=== PATIENT | female | born 1945 | race Caucasian/White ===

== ENCOUNTER 2022-10-26 18:18 | Inpatient (IN) | payer MEDICARE, MEDICAID, SELFPAY ==
[2022-10-26] VITALS (12 sets, daily range): BP systolic 126–181; BP diastolic 65–92; PULSE 61–73; RESP 16–25; TEMP 36.3; O2SAT 92–97; BMI 23.4
--- NOTE | 2022-10-26 18:36 | PM.HP ---
Providers/Chief Complaint Admitting Physician: Angel Cruz MD Chief Complaint: chest pain History of Present Illness Yasmin Crockett is a 77 year old female with past medical history of hypertension, CAD post [place] in January 2022 followed by PCI, unstable angina, PCI to RCA in August 2022 at [facility] presented to the outside ER today with ongoing chest pain since today morning. Patient has been transferred to our hospital from outside ER. As per patient she woke up today with ongoing left arm pain and heaviness which progressed to left sided chest pain radiating to jaw along with fluttering in chest and nausea. Once pain subsided after taking nitro she developed on and off chest heaviness. In the outside ER she was found to have baseline troponin x1, given full dose aspirin. On examination patient is comfortable in bed, chest pain has resolved but complaining of on and off chest heaviness. Blood pressure is fluctuating between 1 80-200 systolics. At baseline patient states her blood pressure is between 1 30-1 19 systolics. Patient denies any nausea, vomiting, headache. As per patient she has been having on and off chest heaviness with fluttering sensation in the chest for last 1 week on exertion. Review of Systems General: Reports: 10 or more systems reviewed and unremarkable except in HPI and below Const: Denies: fever(s), chills, body aches, change in appetite, change in weight, malaise, night sweats, diaphoresis, change in sleep pattern, daytime sleepiness or snoring Eyes: Denies: change in vision, blurry vision, photophobia, eye discomfort or eye discharge ENMT: Denies: throat pain, enlarged tonsils, hoarseness, mouth pain, oral sores, dry mouth, tinnitus, nasal congestion or post nasal drip Card: Denies: chest pain, palpitations, irregular heart rhythm, edema, swelling of feet/ankles, lightheadedness, syncope, pre-syncope, dyspnea on exertion, orthopnea, leg pain with exertion or acrocyanosis Resp: Denies: dyspnea, productive cough, non-productive cough, wheezing, stridor, pain on inspiration, change in phlegm color, hemoptysis or chest congestion GI: Denies: abdominal pain, nausea, vomiting, hematemesis, coffee ground emesis, dysphagia, heartburn, diarrhea, constipation, bloating, GI cramping, change in bowel habits, pain on defecation, hematochezia or melena : Denies: flank pain, dysuria, urinary frequency, urinary urgency, urinary hesitancy, nocturia or hematuria Musc: Denies: neck pain, back pain, extremity pain, joint pain, joint swelling, joint redness, joint stiffness or limited range of motion Neuro: Denies: headache(s), numbness in extremities, weakness in extremities, sensory changes, lack of coordination, difficulty walking, frequent falls, dizziness, vertigo, confusion, Slurred speech present, difficulty communicating thoughts or seizure-like activity Psych: Denies: anxiety, depression, mood swings, panic attacks, hopelessness or irritability Endo: Denies: polyuria, polydipsia, tired all the time, cold intolerance, excessive sweating, flushing or heat intolerance Igor/Lymph: Denies: easy bruising or easy bleeding All/Imm: Denies: tongue swelling, facial swelling or acute wheezing Medications/Allergies Home Medications Medication Instructions Recorded Confirmed Last Taken Type atorvastatin 20 mg tablet 20 mg PO DAILY 10/26/22 10/26/22 10/26/22 08:00 History clopidogrel 75 mg tablet 75 mg PO DAILY 10/26/22 10/26/22 10/25/22 12:00 History hydrochlorothiazide 12.5 mg capsule 12.5 mg PO DAILY 10/26/22 10/26/22 10/26/22 History isosorbide mononitrate 30 mg 30 mg PO DAILY 10/26/22 10/26/22 10/26/22 08:00 History tablet,extended release 24 hr losartan 25 mg tablet 25 mg PO DAILY 10/26/22 10/26/22 10/26/22 History nitroglycerin 0.4 mg sublingual 0.4 mg sublingual PRN PRN Chest 10/26/22 10/26/22 10/26/22 History tablet Pain Allergies Allergy/AdvReac Type Severity Reaction Status Date / Time ciprofloxacin [From Cipro] Allergy ALGY-Rash Verified 10/26/22 18:41 Penicillins Allergy ALGY-Rash Verified 10/26/22 18:41 Sulfa (Sulfonamide Allergy ALGY-Rash Verified 10/26/22 18:41 Antibiotics) PFSH Acute PFSH: Medical History (Updated 10/26/22 @ 20:06 by Greg Miles MD) CAD (coronary artery disease) Hypertension Surgical History (Updated 10/26/22 @ 20:06 by Greg Miles MD) S/P coronary artery stent placement Once in January 2022 for [place] and RCA in August 2022 for unstable angina Family History (Updated 10/26/22 @ 20:06 by Greg Miles MD) Other CAD (coronary artery disease) Social History (Updated 10/26/22 @ 20:07 by Greg Miles MD) Smoking and tobacco status: never smoked Alcohol intake: never Caregiver/support person: Yes Lives independently: Yes Household members: spouse Housing: House Marital status: Physical Exam Narrative: General: No acute distress, AO x3 HEENT: PERRLA, pupils bilaterally equal and reactive Chest: Normal vesicular breath sounds, no added sounds, equal good air entry bilaterally CVS: S1-S2 regular, no murmurs, no tachycardia, no gallops, no rubs Abdomen: Soft, nontender, no organomegaly, bowel sounds present Neuro: No focal deficits, no facial deformity, AO x3, power 5/5 in all limbs Data 10/26/22 18:50 10/26/22 18:50 A&P Assessment and plan (1) Chest pain: (2) Hypertensive urgency: (3) CAD (coronary artery disease): (4) Hypertension: Plan 77-year-old female with past medical history of CAD with most recent PCI to RCA in August 2022, PCI to possibly LAD for [place] in January 2022 presented to outside ER with ongoing chest pain found to have negative troponin x1 transferred to [facility] for ongoing chest heaviness found to have hypertensive urgency. Hypertensive urgency: At home patient takes losartan 25 mg daily, Imdur 30 mg daily. Goal blood pressure less than 140/90 MAG. For now start patient on nitro drip and wean as per goal blood pressures. Chest pain: History of CAD post PCI: Ongoing chest heaviness. Nitro as above. Already loaded with 325 mg of aspirin in the morning. Continue with aspirin 81 mg, Plavix 75 mg. Not taking statin and beta-canelo as an outpatient most likely for statin intolerance and bradycardia. Check A1c, lipid panel, D-dimer. If D-dimer positive will plan for CTA. Lovenox 1 mg/kg body weight every 12 hourly. Check echocardiogram. Cycle troponins. If troponin is positive or any regional wall motion abnormality on echocardiogram we will consult cardiology. If patient continues to have chest heaviness will consult cardiology. Otherwise plan for Lexiscan stress test on Friday. CODE STATUS: Discussed in detail with the patient. will be the DPOA. Full code. Cardiac diet. Full dose Lovenox will suffice as DVT prophylaxis Protonix for PUD prophylaxis. Attestations Medical Necessity Statement*: Admission under observation for management of typical chest pain in a patient with history of CAD post PCI's, hypertensive urgency Diagnoses Chest pain R07.9 Hypertensive urgency I16.0 CAD (coronary artery disease) I25.10 Hypertension I10
--- NOTE | 2022-10-26 18:44 | ECG_ITS ---
[facility] Test Date: 2022-10-26 Pat Name: Yasmin Crockett Department: Room: 108 Gender: Female Repatcher: : 1945 Requested By: Greg Miles Order Number: [id number] Reading MD: Hadley Leone M.D. Measurements Intervals [place] Rate: 63 P: 49 MS: 157 QRS: -14 QRSD: 100 T: 36 QT: 446 QTc: 460 Interpretive Statements SINUS RHYTHM MODERATE ST DEPRESSION [0.05+ mV ST DEPRESSION] No previous ECG available for comparison Electronically Signed On 10-27-2022 15:21:35 CDT by Hadley Leone M.D. [id number]
[2022-10-26] MEDS: nitroglycerin drip 50 MG/250 ML PREMIX IV (19:17)
[2022-10-26] MEDS: enoxaparin 80 mg/0.8 mL Syringe SUBCUT (19:19)
[2022-10-26] MEDS: clopidogrel 75 mg Tablet PO (19:19)
[2022-10-26 19:21] LABS: Basophils % 0.6 %; Eosinophils # 0.1 10^3/uL (0.0-0.8); Hematocrit 43.1 % (36-47); Lymphocytes # 1.6 10^3/uL (0.8-4.8); Mean Corpuscular HGB Conc 33.6 g/dL (30-55); Mean Corpuscular Hemoglobin 30.5 pg (27-33); Mean Corpuscular Volume 90.7 fl (85-98); Mean Platelet Volume 9.6 fL (7.4-10.4); Monocytes # 0.5 10^3/uL (0.2-0.9); Monocytes % 9.9 %; Neutrophils # 2.75 10^3/uL (1.8-7.7); Neutrophils % 55.3 %; Nucleated Red Blood Cells % 0 %; Platelet Count 200 10^3/cmm (157-399); Red Blood Count 4.75 10^6/uL (3.85-5.65); Red Cell Distribution Width 12.8 % (12.1-15.1); White Blood Count 4.97 10^3/uL (3.29-11.43)
[2022-10-26 19:38] LABS: D Dimer 0.45 ug/mLFEU (0-0.59)
[2022-10-26 19:44] LABS: Troponin(5th) Baseline 8 ng/L (0-10)
--- NOTE | 2022-10-26 19:44 | PC.NURSE ---
Patient received by direct admit from [place] by EMS at [address] Miles in to see patient.
[2022-10-26 20:42] LABS: NT Pro B Type Natriuretic Pept 62 pg/mL (0-450); Procalcitonin 0.04 ng/mL (0-0.5); Vitamin B12 610 pg/mL (232-1245)
[2022-10-26 20:53] LABS: Alanine Aminotransferase 21 U/L (0-33); Albumin Level 4.5 g/dL (3.5-5.2); Alkaline Phosphatase 46 U/L (35-105); Anion Gap 13.7 (5-19); Aspartate Amino Transferase 16 U/L (0-32); Blood Urea Nitrogen 11 mg/dL (8-23); Calcium 9.6 mg/dL (8.5-10.5); Carbon Dioxide 28 mmol/L (22-29); Chloride 104 mmol/L (98-107); Globulin 2.6 g/dL (1.3-4.6); Glucose 85 mg/dL (65-115); Iron 86 ug/dL (37-145); Osmolality Calculated 293 mOsm/kg (285-295); Potassium 3.7 mmol/L (3.5-5.1); Sodium 142 mmol/L (136-145); Total Bilirubin 0.4 mg/dL (0.15-1.2); Total Iron Binding Capacity 268 mcg/dl; Total Protein 7.1 g/dL (6.6-8.7); Unsaturated Iron Binding 182 ug/dL (112-347)
[2022-10-26 21:20] LABS: Troponin 5 2HR 10.18 ng/L (0-10)
[2022-10-26 21:29] LABS: Troponin 5 2HR Delta 2.18 ABS# (0-10)
[2022-10-26 21:39] LABS: Add Urine Culture? No; Add Urine Microscopic? YES; Bacteria Urine TRACE /hpf; Bilirubin Urine Neg (Negative); Blood Urine 2+ (Negative); Glucose Urine UA Trace (Normal); Ketones Urine Negative (Negative); Leukocyte Esterase Urine Negative (Negative); Nitrate Urine Negative (Negative); Protein Urine Neg (Negative); RBC Urine 0-4 /hpf (0-2); Squamous Epithelial Cell Urine 0-4 /hpf (0-5); Urine Appearance Clear (CLEAR); Urine Color Yellow (Yellow); Urobilinogen Urine Norm (Negative); WBC Urine 0-4 /hpf (0-5); pH Urine 6.5 (5-7)
[2022-10-26] MEDS: trazodone 50 mg Tablet PO (23:19)
[2022-10-27] VITALS (24 sets, daily range): BP systolic 104–154; BP diastolic 53–107; PULSE 56–72; RESP 12–23; TEMP 36.2–36.9; O2SAT 91–95; BMI 29.1
[2022-10-27 00:44] LABS: Basophils % 0.5 %; Eosinophils # 0.1 10^3/uL (0.0-0.8); Eosinophils % 1.4 %; Hematocrit 38.8 % (36-47); Lymphocytes # 1.9 10^3/uL (0.8-4.8); Lymphocytes % 33.7 %; Mean Corpuscular HGB Conc 34.3 g/dL (30-55); Mean Corpuscular Volume 90.4 fl (85-98); Mean Platelet Volume 9.1 fL (7.4-10.4); Monocytes # 0.7 10^3/uL (0.2-0.9); Monocytes % 11.6 %; Neutrophils # 2.98 10^3/uL (1.8-7.7); Neutrophils % 52.6 %; Nucleated Red Blood Cells % 0 %; Platelet Count 175 10^3/cmm (157-399); Red Blood Count 4.29 10^6/uL (3.85-5.65); White Blood Count 5.67 10^3/uL (3.29-11.43)
--- NOTE | 2022-10-27 00:50 | ECG_ITS ---
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 Measurements Intervals [place] Rate: 57 P: 58 DC: 152 QRS: -19 QRSD: 102 T: 33 QT: 450 QTc: 440 Interpretive Statements SINUS BRADYCARDIA Compared to ECG 10/26/2022 18:44:27 Sinus rhythm no longer present ST (T wave) deviation no longer present Electronically Signed On 10-27-2022 15:24:27 CDT by Hadley Leone M.D. [id number]
[2022-10-27 01:29] LABS: Alanine Aminotransferase 20 U/L (0-33); Albumin Level 4.3 g/dL (3.5-5.2); Alkaline Phosphatase 41 U/L (35-105); Anion Gap 12.5 (5-19); Aspartate Amino Transferase 14 U/L (0-32); Blood Urea Nitrogen 13 mg/dL (8-23); Calcium 9.7 mg/dL (8.5-10.5); Carbon Dioxide 28 mmol/L (22-29); Chloride 107 mmol/L (98-107); Chol HDL Ratio 5.35 mg/dL (0.0-4.40); Cholesterol 230 mg/dL (0-200); Globulin 2.4 g/dL (1.3-4.6); Glucose 86 mg/dL (65-115); HDL Cholesterol 43 mg/dL (60-100); LDL Cholesterol Calculated 142 mg/dL (50-129); Magnesium 1.8 mg/dL (1.7-2.3); Osmolality Calculated 297 mOsm/kg (285-295); Phosphorus 2.9 mg/dL (2.5-4.5); Potassium 3.5 mmol/L (3.5-5.1); Sodium 144 mmol/L (136-145); Total Bilirubin 0.3 mg/dL (0.15-1.2); Total Protein 6.7 g/dL (6.6-8.7); Triglycerides 224 mg/dL (0-150)
[2022-10-27 01:36] LABS: Estmated Average Glucose 108; Hemoglobin A1C 5.4 % (4.0-6.0)
[2022-10-27 01:46] LABS: Troponin 5 6HR 9.54 ng/L (0-10); Troponin 5 6HR Delta 1.54 ng/L (0-12)
[2022-10-27 04:01] LABS: Folate Level > 20.0 ng/mL (4.8-37.3)
[2022-10-27] MEDS: enoxaparin 80 mg/0.8 mL Syringe SUBCUT ×2 (05:58→17:58)
--- NOTE | 2022-10-27 06:00 | USCV_ITS ---
Yasmin Bledsoe Age: 77 Gender: F : 1945 Exam Date: 10/27/2022 06:41 Ordering Phys: Greg Miles MD Technologist: Satish Burgos Exam Location: [facility] [place] Indication: chest pain BP: 104 / 59 HR: 65 Rhythm: Sinus Technical Quality: Adequate MEASUREMENTS (Male / Female) Normal Values 2D ECHO LVOT Diameter 2.0 cm LV Ejection Fraction MOD 2C 70.5 % LV Ejection Fraction 2C AL 72.9 % LA Diameter 3.2 cm LA Width 3.9 cm LA Height 4.8 cm RA Width 3.7 cm RA Height 4.1 cm Aorta at Sinotubular Diameter 2.2 cm IVC Diameter 1.8 cm M-MODE Aortic Annulus Diameter 2.1 cm LA Ao Ratio MM 1.6 MV E Point Septal Separation 0.3 cm DOPPLER AV Peak Velocity 156.0 cm/s LVOT Peak Velocity 104.0 cm/s AV Area Cont Eq vti 2.3 cm squared AV Area Cont Eq pk 2.2 cm squared MV Peak Velocity 118.0 cm/s MV Area PHT 3.9 cm squared Mitral E to A Ratio 0.8 MV E' Velocity 40.0 cm/s Mitral E to MV E' Ratio 11.5 Mitral E to LV E' Lateral Ratio 10.2 Mitral E to LV E' Septal Ratio 13.4 TR Peak Velocity 373.9 cm/s TR Peak Gradient 55.9 mmHg TR Mean Velocity 279.3 cm/s TR Mean Gradient 33.6 mmHg TR Velocity Time Integral 121.3 cm Right Atrial Pressure 3.0 mmHg Pulmonary Artery Systolic Pressu 58.9 mmHg PV Peak Velocity 110.0 cm/s RV Acceleration Time 0.1 s RV Ejection Time 0.3 s RV AcT/ET 0.2 FINDINGS Left Ventricle Left ventricle is normal in size. LV systolic function is normal with EF of 55 to 60%. No regional wall motion abnormalities are seen. Grade 1 diastolic dysfunction Right Ventricle Normal in size and function Right Atrium Normal in size Left Atrium Normal in size Mitral Valve Structurally normal mitral valve. Mild mitral regurgitation. Aortic Valve Structurally normal aortic valve. No significant stenosis or regurgitation. Tricuspid Valve Mild tricuspid regurgitation. RVSP is 55-60mmHg. This is consistent with moderate pulmonary hypertension Pulmonic Valve Not well visualized. Trace pulmonic regurgitation. Pericardium Normal Aorta Normal in size IVC Appears to be normal CONCLUSIONS LV systolic function is normal with EF of 55-60% Grade 1 diastolic dysfunction Mild mitral regurgitation Mild tricuspid regurgitation Moderate pulmonary hypertension Trace pulmonic regurgitation No comparison studies are available. Hadley Leone MD (Electronically Signed) Final Date: 27 October 2022 12:35 S
[2022-10-27] MEDS: aspirin 81 mg EC Tablet PO (08:30)
[2022-10-27] MEDS: pantoprazole DR 40 mg Tablet PO (08:30)
[2022-10-27] MEDS: clopidogrel 75 mg Tablet PO (08:30)
[2022-10-27] MEDS: atorvastatin 40 mg Tablet 20 MG PO (08:31)
[2022-10-27] MEDS: losartan 50 mg Tablet PO (08:31)
[2022-10-27] MEDS: isosorbide mononitrate ER 30 mg Tablet PO ×2 (08:31→11:53)
[2022-10-27] MEDS: ezetimibe 10 mg Tablet PO (11:53)
--- NOTE | 2022-10-27 13:20 | PM.PN ---
Subjective Subjective: No acute events overnight. Blood pressure is better controlled though she is on a nitro drip of 2.5. Patient states she is feeling better. Denies any further chest pain on nitro drip with systolics ranging in 118 to 125 mmHg. Denies any nausea, vomiting. Blood was appreciated for a stable CMP and CBC, flat negative troponins. A1c and lipid panel appreciated. During the day nitro drip is being weaned off as oral antihypertensives are uptitrated Vitals/I&O/Wt Last Vital Signs Temp 98.0 F 10/27/22 11:24 Pulse 63 10/27/22 11:24 Resp 23 H 10/27/22 11:24 BP 129/107 10/27/22 11:24 Pulse Ox 95 10/27/22 11:24 O2 Del Method Room Air 10/27/22 11:24 10/26/22 10/27/22 10/27/22 22:59 06:59 14:59 Intake Total 480 / 480 460 / 940 370 / 370 Output Total 400 / 400 350 / 750 175 / 175 Balance 80 / 80 110 / 190 195 / 195 Weight last 48 hrs Weight 90.9 kg Weight 72.983 kg Weight 72.983 kg Physical Exam Narrative: General: No acute distress, AO x3 HEENT: PERRLA, pupils bilaterally equal and reactive Chest: Normal vesicular breath sounds, no added sounds, equal good air entry bilaterally CVS: S1-S2 regular, soft pansystolic murmur at tricuspid area, no tachycardia, no gallops, no rubs Abdomen: Soft, nontender, no organomegaly, bowel sounds present Neuro: No focal deficits, no facial deformity, AO x3, power 5/5 in all limbs Data 10/27/22 00:35 10/27/22 00:35 A&P Assessment and plan (1) Chest pain: (2) Hypertensive urgency: (3) CAD (coronary artery disease): (4) Hypertension: Plan 77-year-old female with past medical history of CAD with most recent PCI to RCA in August 2022, PCI to possibly LAD for [place] in January 2022 presented to outside ER with ongoing chest pain found to have negative troponin x1 transferred to [facility] for ongoing chest heaviness found to have hypertensive urgency. Hypertensive urgency: Better controlled. At home patient takes losartan 25 mg daily, Imdur 30 mg daily. Goal blood pressure less than 140/90 mmHg. Stop nitro drip. Losartan increased to 50 mg daily. Increase Imdur to 60 mg daily. Holding off on hydrochlorothiazide for now. Chest pain: History of CAD post PCI: Ongoing chest heaviness. Troponin cycled flat and negative. Cannot rule out microvascular angina. For now continue with aspirin, Plavix. Patient is agreeable for statin given uncontrolled hyperlipidemia. Start atorvastatin at 20 mg daily along with ezetimibe 10 mg daily. Not on beta-canelo given bradycardia. Appreciate A1c, lipid panel N.p.o. after midnight for Lexiscan stress test. For now continue with Lovenox 1 mg/kg body weight every 12 hourly. Echocardiogram appreciated for a normal EF, grade 1 diastolic dysfunction, mild MR, mild TR, moderate pulmonary hypertension. CODE STATUS: Discussed in detail with the patient. will be the DPOA. Full code. Cardiac diet. Full dose Lovenox will suffice as DVT prophylaxis Protonix for PUD prophylaxis. Attestations Medical Necessity Statement*: Requires further hospitalization for evaluation and management of chest pain in a patient with history of baseline CAD, post PCI most recently in August 2022, hypertensive urgency as antihypertensives were adjusted Diagnoses Chest pain R07.9 Hypertensive urgency I16.0 CAD (coronary artery disease) I25.10 Hypertension I10
[2022-10-28] VITALS (10 sets, daily range): BP systolic 97–148; BP diastolic 53–80; PULSE 63–80; RESP 16–25; TEMP 36.6–37.4; O2SAT 90–96
--- NOTE | 2022-10-28 | ECG_ITS ---
[facility] Test Date: 2022-10-28 Pat Name: Yasmin Crockett Department: Room: 108 Gender: Female Stage Driver: Jessica Payton : 1945 Requested By: Hadley Leone Order Number: [id number] Donny MD: Hadley Leone M.D. Interpretive Statements NAME OF STUDY: LEXISCAN SESTAMIBI STRESS TEST INDICATION: [Chest Pressure] Procedure: At the baseline, the blood pressure was 116/61 mmHg with a heart rate of 72 bpm. The electrocardiogram showed normal sinus rhythm, normal axis with normal ST and T's. The Lexiscan was infused over a period of 20 seconds. A total of 0.4 mg of Lexiscan was infused. The stress phase was continued for a total of 5 minutes. Heart rate was at the end of stress phase was 60 bpm and a blood pressure of 94/55mmHg. The EKG at the peak infusion revealed normal sinus rhythm with no significant ST-T wave changes. Sestamibi was injected 20 seconds after the Lexiscan infusion. Blood pressure at the end of recovery phase was97/53mmHg with a heart rate of 76bpm. Conclusion: 1. Normal EKG response to Lexiscan infusion 2. No Lexiscan induced chest pain or cardiac arrhythmia. 3. Normal blood pressure and heart rate response. 4. Sestamibi/sestamibi perfusion scan pending; see separate report. Electronically Signed On 11-11-2022 12:20:28 CDT by Hadley Leone M.D. [id number]
[2022-10-28 03:29] LABS: Basophils % 0.3 %; Eosinophils # 0.1 10^3/uL (0.0-0.8); Eosinophils % 1.4 %; Hematocrit 39.1 % (36-47); Lymphocytes # 1.9 10^3/uL (0.8-4.8); Lymphocytes % 32.5 %; Mean Corpuscular HGB Conc 33.2 g/dL (30-55); Mean Corpuscular Hemoglobin 30.5 pg (27-33); Mean Corpuscular Volume 91.8 fl (85-98); Mean Platelet Volume 9.5 fL (7.4-10.4); Monocytes # 0.5 10^3/uL (0.2-0.9); Neutrophils # 3.28 10^3/uL (1.8-7.7); Neutrophils % 56.6 %; Nucleated Red Blood Cells % 0 %; Platelet Count 173 10^3/cmm (157-399); Red Blood Count 4.26 10^6/uL (3.85-5.65); Red Cell Distribution Width 12.9 % (12.1-15.1); White Blood Count 5.79 10^3/uL (3.29-11.43)
[2022-10-28 03:52] LABS: Alanine Aminotransferase 23 U/L (0-33); Albumin Level 4.2 g/dL (3.5-5.2); Alkaline Phosphatase 47 U/L (35-105); Anion Gap 12.8 (5-19); Aspartate Amino Transferase 17 U/L (0-32); Blood Urea Nitrogen 15 mg/dL (8-23); Calcium 9.4 mg/dL (8.5-10.5); Carbon Dioxide 27 mmol/L (22-29); Chloride 105 mmol/L (98-107); Globulin 2.5 g/dL (1.3-4.6); Glucose 101 mg/dL (65-115); Osmolality Calculated 293 mOsm/kg (285-295); Potassium 3.8 mmol/L (3.5-5.1); Sodium 141 mmol/L (136-145); Total Bilirubin 0.4 mg/dL (0.15-1.2); Total Protein 6.7 g/dL (6.6-8.7)
[2022-10-28] MEDS: enoxaparin 80 mg/0.8 mL Syringe SUBCUT ×2 (06:21→17:30)
--- NOTE | 2022-10-28 07:00 | NMCV_ITS ---
NM sulma perf SPECT r/s* [id number] Yasmin Bledsoe Age: 77 Gender: F : 1945 Exam Date: 10/28/2022 11:53 Ordering Phys: Greg Miles MD Technologist: DANA Lo Exam Location: [facility] Indications: CHEST PAIN STRESS TEST Please see separate stress test report in [facility] for full findings IMAGE PROTOCOL Rest/Stress 1 Lexiscan Day Radiopharmaceutical Dose (mCi) Administration Site Administered by Rest: Tc-99m 10.7 IV DANA Lo Sestamibi Stress:Tc-99m 32.7 IV DANA Albert Sestamibi Rest: 28-Oct-2022 60 Discovery 630 Stress: 28-Oct-2022 30 Discovery 630 0.4mg Lexiscan. Images obtained in supine and prone position. SPECT RESULTS Technical Quality: Excellent Raw Data Analysis: Normal Image Corrections: No attenuation or motion correction applied Summed Stress Score: 0 Summed Rest Score: 2 Summed Difference Score: 0 PERFUSION FINDINGS SPECT images demonstrate homogeneous tracer distribution throughout the myocardium. FUNCTIONAL RESULTS (calculated via Gated SPECT) Stress Image LV EF (%): 82 Stress EDV (mL):68 TID: 1.16 Stress ESV (mL):12 FUNCTIONAL FINDINGS: There is normal left ventricular systolic function. IMPRESSIONS 1. Normal myocardial perfusion imaging with no evidence of ischemia 2. LV systolic function is normal Hadley Leone MD (Electronically Signed) Final Date: 29 October 2022 08:48 S
[2022-10-28] MEDS: isosorbide mononitrate ER 30 mg Tablet 60 MG PO (08:48)
[2022-10-28] MEDS: atorvastatin 40 mg Tablet 20 MG PO (08:48)
[2022-10-28] MEDS: clopidogrel 75 mg Tablet PO (08:48)
[2022-10-28] MEDS: ezetimibe 10 mg Tablet PO (08:48)
[2022-10-28] MEDS: losartan 50 mg Tablet PO (08:48)
[2022-10-28] MEDS: aspirin 81 mg EC Tablet PO (08:49)
--- NOTE | 2022-10-28 10:35 | PC.CHAP ---
Pastoral Care Encounter/Spiritual Assessment Type of Contact [] Declined control systems drafting officer visit [] Patient/Family/Request visit [] Outpatient visit [] Follow-up visit [] Physician referral [] Code/Alert [x] Routine visit [] Staff referral [] Actively dying [] Patient sleeping [] Family support [] [] Out of room [] Palliative care [] x[x] Receiving care in room [] Pre-surgical visit [] Trauma [] Long length of stay [] ICU visit [] Other: Relational/Emotional Strength [] Patient feels connected with others/family/visitors/staff [] Distress [] Loneliness/isolation [] Abandonment Spirituality of Patient [] Person of Nellie [] Attends Cheondoism of their Nellie [] Believes in Prayer [] Reads Bible or Episcopalian materials [] There are Spiritual issues to be addressed Production Expediter Interventions [] Prayer [] Active listening [] Non-anxious presence [] Spiritual/emotional support [] Crisis/trauma care [] Spiritual counseling [] Bereavement support [] Provided bereavement packet [] Provided Bible/devotional materials [] Provided toy/stuffed animal, coloring book to patient or family member [] Provided Communion [] Anointing/[place] [] Salvation [] Completed spiritual assessment [] Other: Impact on Illness or Injury [] Angry [] Fearful [] Anxious [] Often cries [] Exhaustion [] Unable to work [] Unable to attend latter-day [] Unable to walk/stand [] Unable to read [] Unable to drive [] Unable to eat/drink [] Unable to sleep [] Unable to be with family [] Patient intubated [] Other: Summary Time spent with patient
--- NOTE | 2022-10-28 12:40 | PC.NURSE ---
Left CSU for stress test at 1200.
[2022-10-28] MEDS: regadenoson 0.4 Mg/5 ml Syringe IVP (12:45)
--- NOTE | 2022-10-28 18:01 | PC.NURSE ---
Patient returned to CSU from her stress test at 1410.
--- NOTE | 2022-10-28 18:02 | PC.NURSE ---
Nitro drip was stopped at [address] Ng orders. Patient has not had any complaints of chest pain or chest heaviness since 0700 (dayshift).
--- NOTE | 2022-10-28 19:11 | P.PN_ITS ---
Subjective Subjective: Patient restarted on nitro drip due to recurrent chest pain. Patient reports the nitro helps her chest pain go away. Blood pressure much better. She complains of headache and nausae which she attributes to the nitro. Cardiac stress test performed today, read is pending. Patient denies nausea, vomiting, fevers or chills. Medications: Reviewed: Yes Vitals/I&O/Wt Last Vital Signs Temp 97.9 F 10/28/22 16:00 Pulse 68 10/28/22 16:00 Resp 21 H 10/28/22 16:00 BP 117/67 10/28/22 16:00 Pulse Ox 94 10/28/22 16:00 O2 Del Method Room Air 10/28/22 16:00 10/28/22 10/28/22 10/28/22 06:59 14:59 22:59 Intake Total 17.025 / 17.025 366.238 / 383.263 Output Total 400 / 675 Balance -400 / -237.725 17.025 / 17.025 366.238 / 383.263 Weight last 48 hrs Weight 72.665 kg Weight 90.9 kg Weight 90.9 kg Physical Exam Narrative: Awake, alert, and pleasant. Normocephalic. EOMI. No JVD Normal S1 and S2. Normal rate. Trace pedal edema. No murmur. No gallop. Breath sounds are slightly diminished in bilateral bases. No wheezing. No crackles. Abdomen is soft. Non-tender. No guarding. Moves all 4 extremities. No myoclonus. Cranial nerves grossly intact. and rectal exam deferred. Appropriate affect. Not anxious appearing. Data 10/28/22 03:04 10/28/22 03:04 A&P Assessment and plan (1) Chest pain: Patient initially presented with chest pain on Friday ACS ruled out with serial troponin, telemetry, and EKG Echo reviewed Intermittently on NTG drip for past few days, reporting NTG relieves the chest pains Stress test done today, read is still pending Known hx of CAD w/ PCI in summer and Fall/winter Will ask cardiology for further recommendations given persistent chest pain Stop nitro drip Continue DAPT, statin, Zetia Continue Imdur Continue therapeutic Lovenox for now (2) Hypertensive urgency: Blood pressure improved on nitro drip Rotate off NTG drip Continue increased dose of losartan Continue increased dose of Imdur (3) CAD (coronary artery disease): As above (4) Hypertension: As above Plan DVT ppx: Lovenox Code: Full Attestations Medical Necessity Statement*: Patient requires ongoing hospitalization for weaning of NTG IV drip, stress test results, cardiology evaluation, telemetry, blood pressure monitoring and supportive care. Coding Level of Care Code Acute Code for [facility] Fwd Diagnoses Chest pain R07.9 Hypertensive urgency I16.0 CAD (coronary artery disease) I25.10 Hypertension I10
[2022-10-29] VITALS (15 sets, daily range): BP systolic 116–176; BP diastolic 66–108; PULSE 56–71; RESP 16–21; TEMP 36.6–36.9; O2SAT 94–97
--- NOTE | 2022-10-29 07:10 | PM.CONSULT ---
Providers/Reason For Consult Consulting Physician/Specialty*: BRENDAN Sparks MD/cardiology Reason for Consult*: Patient with chest pain, history of CAD and PCI Requesting Physician: Dr. JAMES Attending Physician: Garth James MD History of Present Illness History of Present Illness Yasmin Crockett is a 77 year old female with a history of coronary disease, status post myocardial infarction, status post PCI of the right coronary artery, presenting with complaints of chest pain and uncontrolled blood pressure. Cardiology consult is requested for further cardiac evaluation recommendations. The patient had a myocardial infarction in January 2022. She was admitted to the [facility] in [facility] [place] [facility]. She had a cardiac radiation followed by PCI of the artery on the left side. Details are not available. In August of this year, she presented with chest pain. She had a repeat cardiac radiation. At that time she was found to have 2 lesions in the right coronary artery for which she underwent PCI-had 2 stents . According the patient, she been doing okay up until the last Friday morning when she woke up with left arm pain, rating to the left side of the neck associate with the chest discomfort. The intensity was 3/10. The pain made her last for several minutes and then gradually subsided. She went back to bed and woke up around 6:00 again with a similar symptoms. Symptoms persisted for several hours. For this reason, she was initially seen in the [facility] emergency room. From there she was transferred to our hospital for further evaluation and management. She was on IV nitroglycerin up until yesterday. She was having more or less constant pain up until last evening. Currently she is pain-free. She had a Myocardial perfusion imaging yesterday which was unremarkable. Her mother had a coronary bypass surgery in her 50s. Father of myocardial infarction in his 80s. Details are not available. Patient is adopted. No history for smoking abuse or alcohol abuse. Remote history of peptic ulcer disease. No recent gastric symptoms. So far there is no evidence of myocardial injury. Review of Systems Narrative: CONSTITUTIONAL: No fever or chills. EYES: No blurring of vision or other visual disturbances lately. ENT: No hoarseness of voice, auditory disturbances or sore throat. CARDIOVASCULAR: As mentioned above. RESPIRATORY: No significant cough. GASTROINTESTINAL: No hematemesis or melena. GENITOURINARY: No dysuria or hematuria. INTEGUMENTARY: No skin rashes or history of skin cancer. NEURO: No transient ischemic attacks or amaurosis. PSYCHIATRIC: No history of psychosis or major depression. HEMATOLOGIC: No bleeding disorders or significant anemia. ENDOCRINE: No history of polyuria or polydipsia. MUSCULOSKELETAL: No recent joint pain or swelling. ALLERGY/IMMUNOLOGY: As mentioned above. Medications/Allergies Home Medications Medication Instructions Recorded Confirmed Last Taken Type atorvastatin 20 mg tablet 20 mg PO DAILY 10/26/22 10/26/22 10/26/22 08:00 History clopidogrel 75 mg tablet 75 mg PO DAILY 10/26/22 10/26/22 10/25/22 12:00 History hydrochlorothiazide 12.5 mg capsule 12.5 mg PO DAILY 10/26/22 10/26/22 10/26/22 History isosorbide mononitrate 30 mg 30 mg PO DAILY 10/26/22 10/26/22 10/26/22 08:00 History tablet,extended release 24 hr losartan 25 mg tablet 25 mg PO DAILY 10/26/22 10/26/22 10/26/22 History nitroglycerin 0.4 mg sublingual 0.4 mg sublingual PRN PRN Chest 10/26/22 10/26/22 10/26/22 History tablet Pain Allergies Allergy/AdvReac Type Severity Reaction Status Date / Time ciprofloxacin [From Cipro] Allergy ALGY-Rash Verified 10/26/22 18:41 Penicillins Allergy ALGY-Rash Verified 10/26/22 18:41 Sulfa (Sulfonamide Allergy ALGY-Rash Verified 10/26/22 18:41 Antibiotics) Current Medications Generic Name Dose Route Start Last Admin Trade Name Freq PRN Reason Stop Dose Admin Aspirin 81 mg 10/27/22 09:00 10/28/22 08:49 Aspirin 81 Mg Ec Tablet PO 81 mg DAILY MAHSA Administration Atorvastatin Calcium 20 mg 10/27/22 09:00 10/28/22 08:48 Atorvastatin 40 Mg Tablet PO 20 mg DAILY MAHSA Administration Clopidogrel Bisulfate 75 mg 10/26/22 18:45 10/28/22 08:48 Clopidogrel 75 Mg Tablet PO 75 mg DAILY MAHSA Administration Ezetimibe 10 mg 10/27/22 10:10 10/28/22 08:48 Ezetimibe 10 Mg Tablet PO 10 mg DAILY MAHSA Administration Enoxaparin Sodium 80 mg 10/26/22 18:45 10/28/22 17:30 Enoxaparin 80 Mg/0.8 Ml Syringe SUBCUT 80 mg Q12H MAHSA Administration Isosorbide Mononitrate 60 mg 10/28/22 09:00 10/28/22 08:48 Isosorbide Mononitrate Er 30 Mg Tablet PO 60 mg DAILY MAHSA Administration Losartan Potassium 50 mg 10/27/22 09:00 10/28/22 08:48 Losartan 50 Mg Tablet PO 50 mg DAILY MAHSA Administration Pantoprazole Sodium 40 mg 10/27/22 09:00 10/28/22 08:[address] 40 Mg Tablet PO Not Given DAILY MAHSA Trazodone HCl 50 mg 10/26/22 18:35 10/26/22 23:19 Trazodone 50 Mg Tablet PO 50 mg BEDTIME PRN Administration INSOMNIA PFSH Acute PFSH: Medical History CAD (coronary artery disease) Hypertension Surgical History S/P coronary artery stent placement Once in January 2022 for VT and RCA in August 2022 for unstable angina Family History Other CAD (coronary artery disease) Social History Smoking and tobacco status: never smoked Alcohol intake: never Caregiver/support person: Yes Lives independently: Yes Household members: spouse Housing: House Marital status: Vitals/I&O/Wt Last Vital Signs Temp 97.9 F 10/29/22 03:57 Pulse 61 10/29/22 05:05 Resp 17 10/29/22 03:57 BP 141/79 10/29/22 03:57 Pulse Ox 96 10/29/22 03:57 O2 Del Method Room Air 10/29/22 03:57 10/28/22 10/29/22 10/29/22 22:59 06:59 14:59 Intake Total 366.238 / 383.263 Balance 366.238 / 383.263 Weight last 48 hrs Weight 160 lb 3.2 oz Weight 200 lb 6.4 oz Physical Exam Narrative: GENERAL: The patient is alert and oriented times three. Not in any acute distress. HEENT: No significant pallor, icterus or lymphadenopathy.Oral cavity: There are no mucous membrane lesions. NECK: Trachea appears to be central. No masses noted. No JVD or thyromegaly appreciated. RESPIRATORY: Chest is symmetrical. No intercostals muscle retraction or any accessory muscle activation. There is no chest wall tenderness. Breath sounds are heard bilaterally. No rales or rhonchi heard. No evidence of any consolidation. BREASTS: Deferred. HEART: The heart sounds are normal. No S3 or S4. No significant murmurs. No pericardial rub ABDOMEN: No vessel pulsations or distention. No tenderness. No organomegaly appreciated. Bowel sounds are normally heard. : Deferred. RECTAL: Deferred. LYMPHATIC: No lymphadenopathy noted in the neck. EXTREMITIES: Right radial pulses palpable but somewhat weak MUSCULOSKELETAL: No acute joint deformities or swelling SKIN: There are no significant rashes or ecchymosis NEUROPSYCHIATRIC: The patient is alert and oriented x3. Appears to be in a good mood. No tremors or rigidity noted. Data 10/28/22 03:04 10/28/22 03:04 Other Labs: Laboratory Last Values WBC 5.79 10^3/uL (3.29-11.43) 10/28/22 03:04 RBC 4.26 10^6/uL (3.85-5.65) 10/28/22 03:04 Hgb 13.00 g/dL (11.27-16.99) 10/28/22 03:04 Hct 39.1 % (36-47) 10/28/22 03:04 MCV 91.8 fl (85-98) 10/28/22 03:04 MCH 30.5 pg (27-33) 10/28/22 03:04 MCHC 33.2 g/dL (30-55) 10/28/22 03:04 RDW 12.9 % (12.1-15.1) 10/28/22 03:04 Plt Count 173 10^3/cmm (157-399) 10/28/22 03:04 MPV 9.5 fL (7.4-10.4) 10/28/22 03:04 Neut % (Auto) 56.6 % 10/28/22 03:04 Lymph % (Auto) 32.5 % 10/28/22 03:04 [place] % (Auto) 9.0 % 10/28/22 03:04 Eos % (Auto) 1.4 % 10/28/22 03:04 Baso % (Auto) 0.3 % 10/28/22 03:04 Neut # (Auto) 3.28 10^3/uL (1.8-7.7) 10/28/22 03:04 Lymph # (Auto) 1.9 10^3/uL (0.8-4.8) 10/28/22 03:04 [place] # (Auto) 0.5 10^3/uL (0.2-0.9) 10/28/22 03:04 Eos # (Auto) 0.1 10^3/uL (0.0-0.8) 10/28/22 03:04 Baso # (Auto) 0.0 10^3/uL (0.0-0.1) 10/28/22 03:04 Nucleated RBC % (auto) 0 % 10/28/22 03:04 Nucleated RBCs # 0.0 /100WBC 10/28/22 03:04 D-Dimer 0.45 ug/mLFEU (0-0.59) 10/26/22 18:50 Sodium 141 mmol/L (136-145) 10/28/22 03:04 Potassium 3.8 mmol/L (3.5-5.1) 10/28/22 03:04 Chloride 105 mmol/L (98-107) 10/28/22 03:04 Carbon Dioxide 27 mmol/L (22-29) 10/28/22 03:04 Anion Gap 12.8 (5-19) 10/28/22 03:04 BUN 15 mg/dL (8-23) 10/28/22 03:04 Creatinine 0.6 mg/dL (0.5-0.9) 10/28/22 03:04 GFR Calculation Not Reportable 10/28/22 03:04 Glucose 101 mg/dL (65-115) 10/28/22 03:04 Estimat Average Glucose 108 10/27/22 00:35 Hemoglobin A1c 5.4 % (4.0-6.0) 10/27/22 00:35 Calculated Osmolality 293 mOsm/kg (285-295) 10/28/22 03:04 Calcium 9.4 mg/dL (8.5-10.5) 10/28/22 03:04 Phosphorus 2.9 mg/dL (2.5-4.5) 10/27/22 00:35 Magnesium 1.8 mg/dL (1.7-2.3) 10/27/22 00:35 Iron 86 ug/dL (37-145) 10/26/22 18:50 TIBC 268 mcg/dl 10/26/22 18:50 % Saturation 32.0 % (20-50) 10/26/22 18:50 Unsat Iron Binding 182 ug/dL (112-347) 10/26/22 18:50 Total Bilirubin 0.4 mg/dL (0.15-1.2) 10/28/22 03:04 AST 17 U/L (0-32) 10/28/22 03:04 ALT 23 U/L (0-33) 10/28/22 03:04 Alkaline Phosphatase 47 U/L (35-105) 10/28/22 03:04 Troponin T Baseline 8 ng/L (0-10) 10/26/22 18:50 Troponin T 120 Minute 10.18 ng/L (0-10) H 10/26/22 20:50 Delta Troponin T 2.18 ABS# (0-10) 10/26/22 20:50 Troponin T Hi Sens 6Hr 9.54 ng/L (0-10) 10/27/22 00:35 Troponin T Hi Sens 6Hr Delta 1.54 ng/L (0-12) 10/27/22 00:35 NT-Pro-B Natriuret Pep 62 pg/mL (0-450) 10/26/22 18:50 Total Protein 6.7 g/dL (6.6-8.7) 10/28/22 03:04 Albumin 4.2 g/dL (3.5-5.2) 10/28/22 03:04 Globulin 2.5 g/dL (1.3-4.6) 10/28/22 03:04 Triglycerides 224 mg/dL (0-150) H 10/27/22 00:35 Cholesterol 230 mg/dL (0-200) H 10/27/22 00:35 LDL Cholesterol, Calc 142 mg/dL (50-129) H 10/27/22 00:35 HDL Cholesterol 43 mg/dL (60-100) L 10/27/22 00:35 LDL/HDL Ratio 3.30 RATIO (0.00-3.22) H 10/27/22 00:35 Cholesterol/HDL Ratio 5.35 mg/dL (0.0-4.40) H 10/27/22 00:35 Vitamin B12 610 pg/mL (232-1245) 10/26/22 18:50 Folate > 20.0 ng/mL (4.8-37.3) 10/27/22 00:35 Procalcitonin 0.04 ng/mL (0-0.5) 10/26/22 18:50 TSH 3.70 uIU/mL (0.27-4.20) 10/26/22 18:50 Urine Color Yellow (Yellow) 10/26/22 21:20 Urine Appearance Clear (CLEAR) 10/26/22 21:20 Urine pH 6.5 (5-7) 10/26/22 21:20 Ur Specific [place] 1.010 (1.005-1.030) 10/26/22 21:20 Urine Protein Neg (Negative) 10/26/22 21:20 Urine Glucose (UA) Trace (Normal) H 10/26/22 21:20 Urine Ketones Negative (Negative) 10/26/22 21:20 Urine Blood 2+ (Negative) H 10/26/22 21:20 Urine Nitrate Negative (Negative) 10/26/22 21:20 Urine Bilirubin Neg (Negative) 10/26/22 21:20 Urine Urobilinogen Norm mg/dL (Negative) 10/26/22 21:20 Ur Leukocyte Esterase Negative (Negative) 10/26/22 21:20 Urine RBC 0-4 /hpf (0-2) H 10/26/22 21:20 Urine WBC 0-4 /hpf (0-5) H 10/26/22 21:20 Ur Squamous Epith Cells 0-4 /hpf (0-5) H 10/26/22 21:20 Amorphous Sediment Not Reportable 10/26/22 21:20 Urine Bacteria Trace /hpf (NONE) 10/26/22 21:20 Other data: Myocardial perfusion imaging IMPRESSIONS ?1. Normal myocardial perfusion imaging with? no evidence of ischemia ?2. LV systolic function is normal EKG Normal sinus rhythm with diffuse nonspecific T wave changes. A&P Assessment and plan (1) Chest pain: Patient is a chest pain he has a history of unstable angina. The EKG changes are nonspecific. Myocardial perfusion imaging is unremarkable. However her symptoms are mostly similar to what she had when she had the last heart attack. (2) Atherosclerotic heart disease [place] coronary artery w/angina pectoris: Patient had multiple PCI's in the recent past. In view of her symptoms, highly suggesting unstable angina, even though the Myocardial perfusion imaging is unremarkable, it may be appropriate to go ahead with a cardiac catheterization to better evaluate the coronary arteries and decide on further management. The results of the stress test and the implications were discussed with the patient in detail. Patient and her understood this well. The patient is wanting to go ahead with a coronary angiogram to decide on further management. (3) Benign hypertension: Her blood pressure is still elevated, stage II. We will optimize medical treatment. (4) Dyslipidemia: May continue on the current medications. Consult Attestations Medical Necessity Statement: We will keep the patient n.p.o. Cardiac catheterization today. Because of the conflict with my schedule, I may asked my colleague Dr. Leone to perform this procedure and then decide on further management. Also discussed with Dr. James, who concurred with this plan. I will increase the losartan to 50 mg p.o. daily and the isosorbide mononitrate to 60 mg p.o. daily. Thank you for the opportunity to evaluate this patient and make these recommendations Coding Level of Care Code 29588 Diagnoses Chest pain R07.9 Atherosclerotic heart disease [place] coronary artery w/angina pectoris I25.119 Benign hypertension I10 Dyslipidemia E78.5
--- NOTE | 2022-10-29 09:45 | PC.CHAP ---
Pastoral Care Encounter/Spiritual Assessment Type of Contact [] Declined rib builder visit [] Patient/Family/Request visit [] Outpatient visit [] Follow-up visit [] Physician referral [] Code/Alert [x] Routine visit [] Staff referral [] Actively dying [] Patient sleeping [x] Family support [] [] Out of room [] Palliative care [] [] Receiving care in room [] Pre-surgical visit [] Trauma [] Long length of stay [] ICU visit [] Other: Relational/Emotional Strength [x] Patient feels connected with others/family/visitors/staff [] Distress [] Loneliness/isolation [] Abandonment Spirituality of Patient [x] Person of Nellie [] Attends Jain of their Nlelie [x] Believes in Prayer [] Reads Bible or Moravian materials [] There are Spiritual issues to be addressed Correspondence Representative Interventions [x] Prayer [x] Active listening [] Non-anxious presence [x] Spiritual/emotional support [] Crisis/trauma care [] Spiritual counseling [] Bereavement support [] Provided bereavement packet [] Provided Bible/devotional materials [] Provided toy/stuffed animal, coloring book to patient or family member [] Provided Communion [] Anointing/[place] [] Salvation [x] Completed spiritual assessment [] Other: Impact on Illness or Injury [] Angry [] Fearful [] Anxious [] Often cries [] Exhaustion [] Unable to work [] Unable to attend uatsdin [] Unable to walk/stand [] Unable to read [] Unable to drive [] Unable to eat/drink [] Unable to sleep [] Unable to be with family [] Patient intubated [] Other: Summary Time spent with patient 5 min
[2022-10-29] MEDS: atorvastatin 40 mg Tablet 20 MG PO (09:49)
[2022-10-29] MEDS: aspirin 81 mg EC Tablet PO (09:49)
[2022-10-29] MEDS: ezetimibe 10 mg Tablet PO (09:50)
[2022-10-29] MEDS: losartan 50 mg Tablet PO (09:50)
[2022-10-29] MEDS: enoxaparin 80 mg/0.8 mL Syringe SUBCUT (09:50)
[2022-10-29] MEDS: clopidogrel 75 mg Tablet PO (09:50)
[2022-10-29] MEDS: isosorbide mononitrate ER 30 mg Tablet 60 MG PO (09:50)
--- NOTE | 2022-10-29 10:36 | XACV_ITS ---
Exam Room: 2 Ht: 150 cm Wt: 73 kg BSA: 1.77 m2 Gender: Female : 1945 Exam Priority: Routine Procedure(s): Procedure Description: Diagnostic procedure Procedure Description: Left Heart Catheterization Procedure Description: Left ventriculography Procedure Description: Coronary Angiography Diagnostic Cath Status: Elective Diagnostic Findings * No significant disease noted in the Left Main, Left Anterior Descending, Right, or Circumflex coronary arteries. * Patent prior stents in the Left circumflex artery and RCA. * Coronary angiography shows co-dominance. Conclusions 1. No significant disease noted in the Left Main, Left Anterior Descending, Right, or Circumflex coronary arteries. 2. Patent prior stents. 3. Normal left ventricular systolic function. Ejection fraction of 65%. Recommendations * Aggressive risk factor modifications. * Outpatient cardiology follow up in 4 weeks. Interventional RX Recommendation: medical therapy and/or counseling Diagnostic RX Recommendation: medical therapy and/or counseling Anticoagulation: Heparin Ventriculography Ejection Fraction: 65.0 % Pressures Phase:Rest AO : 141 / 96 ( 117 ) @ 12:21:00 PM 132 / 89 ( 110 ) @ 12:22:00 PM 179 / 78 ( 120 ) @ 12:28:00 PM LV : 171 / -12 / 19 @ 12:27:00 PM 185 / -7 / 25 @ 12:28:00 PM Valves Phase:DefaultPhase AV : 6.0 @ 11:33:55 AM 6.0 @ 11:33:55 AM AV Mean Gradient: 12.0 @ 11:33:55 AM Clinical Evaluation EBL: 5mL-10mL Procedural Details Procedure Consent Obtained. Admit Source: In Patient. Identified patient by full name and date of as verbalized by the patient/guarantor. Does the consent match the physician's order: Yes. Accurate & Complete Informed Consent: Yes. Inpatient/Outpatient History & Physical on Chart: Yes. If H&P is completed, is and addenduem needed: No; If yes, is the addendum complete: N/A. Visualize and Verify Site with Patient/Guarantor: N/A. Relevant Radiology Images available: N/A. The risks, benefits, and alternatives of sedation and/or procedure were discussed by physician. The patient agrees to continue. Procedure started. [facility] Clinical Fraility Score: 3: Managing Well. Building Drafter Indications: Worsening Angina. Chest Pain Symptom Assessment: Typical Angina Symptoms. Correct patient, site and procedure confirmed by cath team. PERRLA. Strong, equal hand solar pv installer bilaterally. Lungs clear x 5 lobes. IV Site on Arrival: 20 gauge in the right anticubital. IV Fluids: 0.9% NaCl at KVO. 0 mL infused prior to laborer starch factory. Pre Procedural Pulses: bilateral radial was 2+. Pre Procedural Pulses: bilateral dorsalis pedis was 1+. Pre Procedural Pulses: bilateral posterior tibial was 1+. Oxygen started at 2liters/min via nasal canula. right groin was prepped with chloroprep then draped in the usual sterile fashion. right radial was prepped with chloroprep then draped in the usual sterile fashion. Baseline sample Acquired. HR: 63 BPM. Physician notified. Physician arrived. Physician scrubbed in. Immediate Pre-Procedure Time Out. Correct Patient: Yes; Correct Procedure: Yes; Correct Site: Yes; Correct Patient Position: Yes; Correct Supplies: Yes; Dried Flammable Prep: Yes; Blood Products Available: N/A;. Lidocaine 1% infiltrated to the right radial. Arterial access obtained. A 5 german TIG catheter in over wire. Multiple views taken of left coronary artery. Catheter redirected to the RCA. Multiple views taken of right coronary artery. Catheter removed over the exchange wire. A 5 german Angled Pig catheter in over wire. EDP Sample taken: LV 171/-13,19; HR: 64 BPM; SpO2: 96%. LV gram performed in WHEELER @ 10 mL/second for a total of 30 mL. Pullback taken: LV 185/-8,25; AO 179/78(120); Mean: 12mmHg, Peak to Peak: 6mmHg, SEP: 22sec/min; HR: 67 BPM; SpO2: 96%. Catheter out. A TR Band was successful obtaining hemostatsis at the Right Radial artery insertion site. Post Procedure: Pulses reassessed and unchanged. PERRLA. Strong, equal hand solar pv installer bilaterally. No VTE prophylaxis required. Medication's Wasted: Lidocaine 1% = 2 mL. Medication's Wasted: Nitro = 49.8 units. Medication's Wasted: Heparin = 1000 mL. Medication's Wasted: Other = versed 1 mg. Medication's Wasted: Other = fentanyl 50 mcg. Total IV fluids: 30 mL. Post-op diagnosis: non obstructive cad, patient prior stents. Complications: none. Estimated blood loss: 5mL-10mL. Responsiveness - Normal response to verbal stimuli; alert and oriented, PERRLA. Airway - Unaffected, no intervention required; spontaneous ventilation. Circulation: W/N/L, pulses unchanged. Nausea/Vomiting: No. Procedure completed. Patient transferred by wheelchair to CPRU. Vital chart was stopped. Access Site Site: Right Radial artery Sheath Size: 6 Fr Hemostasis Method: TR Band Hemostasis Success: Successful Procedure Medications Start: 11:17 AM Stop: 11:17 AM Medication: Versed Amount: 1 mg Route: I.V. Start: 11:17 AM Stop: 11:17 AM Medication: Fentanyl Amount: 50 mcg Route: I.V. Start: 11:19 AM Stop: 11:19 AM Medication: Nitrogylcerin Amount: 200 mcg Route: I.A. Start: 11:20 AM Stop: 11:20 AM Medication: Heparin Amount: 5000 units Route: I.V. I, the attending physician, have reviewed and verified all procedure medications. Yes, all medications given per verbal order History/Risk Factors Hypertension: No Dyslipidemia: No Peripheral Arterial Disease (PAD): No Myocardial Infarction (RI): No Obesity: No Prior Interventions CABG: No Valve Surgery: No Report Signatures Finalized by Hadley Leone MD on 10/29/2022 11:57 AM
[2022-10-29] MEDS: diphenhydrAMINE 50 mg Capsule PO (10:45)
--- NOTE | 2022-10-29 11:12 | W.PM.OPSUD ---
Surgery/Procedure H&P Update DATE OF PROCEDURE: October 29, 2022 DATE H&P PERFORMED: 10/29/22 H&P UPDATE INFORMATION: I have reviewed H&P completed within last 30 days, I have examined patient prior to procedure and Changes to prior documentation as noted here CHANGES TO PREVIOUS DOCUMENTATION: Patient has been having typical cardiac symptoms that have worsened. Although stress test is not showing significant ischemia, she has been referred for coronary angiogram by primary residential gas heat technician because of ongoing symptoms PREOP DIAGNOSIS: Worsening angina PRIMARY INDICATION FOR PROCEDURE: Worsening angina PLANNED PROCEDURE: Left heart cath with possible percutaneous coronary intervention PATIENT REASSESSED PRIOR TO SEDATION, WITH NO CHANGE NOTED: Yes PHYSICAL EXAM: alert, oriented x 3, clear to auscultation bilaterally and regular rate & rhythm AIRWAY EVAL/ANESTHESIA PLAN: normal airway, ASA III, Local Anesthesia, Risks, benefits & alternatives of sedation and/or procedure discussed and Patient agrees to continue as planned ADDITIONAL INFORMATION: Moderate sedation
--- NOTE | 2022-10-29 11:55 | PC.NURSE ---
1135: Patient transferred to CPRU from mine laborer post procedure. TR band in place to patients right wrist. Site clean, dry, et intact. Vitals stable. No c/o pain or discomfort. Will continue to monitor.
--- NOTE | 2022-10-29 12:40 | PC.NURSE ---
1205: Transfer orders received. TR band in place to patients right wrist. Site clean, dry, et intact. Vitals stable. No c/o pain or discomfort. Patient transferred to CSU from CPRU. All belongings sent with patient.
--- NOTE | 2022-10-29 12:58 | PC.NURSE ---
Patient returned from laborer steel handling at 1237.
[2022-10-29] MEDS: sodium chloride 0.9% 1,000 ML 50 ML IV (13:03)
--- NOTE | 2022-10-29 14:17 | PM.DCS ---
Discharge Providers Date of Admission: 10/27/22 17:58 Date of Discharge: October 29, 2022 Attending Provider at Admission: Angel Cruz MD Attending Provider at Discharge: Garth Ng MD Consults: Cardiology Diagnoses at Discharge Discharge Diagnosis (1) Chest pain: Status: Acute (2) Atherosclerotic heart disease [place] coronary artery w/angina pectoris: Status: Acute (3) Benign hypertension: Status: Acute (4) Dyslipidemia: Status: Acute Reason for Visit Reason for Visit: chest pain Hospital Course Hospital Course Yasmin Crockett is a 77-year-old female with a past medical history significant for coronary artery disease with prior PCI/stent, hypertension, and dyslipidemia who transferred from outside hospital after presenting with chest pain concerning for unstable angina. Acute coronary syndrome considered but ruled out with serial troponin, EKG, and telemetry monitoring. Due to persistent chest pain, cardiology was consulted and followed. She underwent cardiac stress testing which was negative for reversible ischemia however she continued to have symptoms concerning for unstable angina. Therefore, she underwent cardiac catheterization which did not show an obstructing lesion. Patient was continued no dual antiplatelet therapy and statin. She was also initiated on Zetia. She was found to have hypertensive urgency treated with nitro infusion and eventually rotated to oral antihypertensives with improvement in blood pressure. She is to keep a blood pressure log and bring to PCP and cardiology clinic evaluations for her blood pressure medications to be further titrated. Patient discharged to home in stable condition. Physical Exam Narrative: General: Patient is awake and alert. Head: Normocephalic. Atraumatic. EOM intact. Neck: No JVD. Cardiovascular: RRR. No gallops. No murmurs. No peripheral edema. Lungs: Clear to auscultation, no use of accessory muscles, no crackles or wheezes. Skin: No jaundice. No rashes. Abdomen: Normal bowel sounds, abdomen soft and nontender. Extremities: No cyanosis or clubbing. Musculoskeletal: No swollen or erythematous joints. Neurological: Moves all 4 extremities. No myoclonus. 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 echo complete* [id number] Routine Ultrasound 10/27/22 06:00 Completed Pending at discharge Category Date Time Status Sestamibi Stress Test Request Routine Exams 10/27/22 10:46 Stop Req Laboratory Results WBC 5.79 10^3/uL (3.29-11.43) 10/28/22 03:04 RBC 4.26 10^6/uL (3.85-5.65) 10/28/22 03:04 Hgb 13.00 g/dL (11.27-16.99) 10/28/22 03:04 Hct 39.1 % (36-47) 10/28/22 03:04 MCV 91.8 fl (85-98) 10/28/22 03:04 MCH 30.5 pg (27-33) 10/28/22 03:04 MCHC 33.2 g/dL (30-55) 10/28/22 03:04 RDW 12.9 % (12.1-15.1) 10/28/22 03:04 Plt Count 173 10^3/cmm (157-399) 10/28/22 03:04 MPV 9.5 fL (7.4-10.4) 10/28/22 03:04 Neut % (Auto) 56.6 % 10/28/22 03:04 Lymph % (Auto) 32.5 % 10/28/22 03:04 [place] % (Auto) 9.0 % 10/28/22 03:04 Eos % (Auto) 1.4 % 10/28/22 03:04 Baso % (Auto) 0.3 % 10/28/22 03:04 Neut # (Auto) 3.28 10^3/uL (1.8-7.7) 10/28/22 03:04 Lymph # (Auto) 1.9 10^3/uL (0.8-4.8) 10/28/22 03:04 [place] # (Auto) 0.5 10^3/uL (0.2-0.9) 10/28/22 03:04 Eos # (Auto) 0.1 10^3/uL (0.0-0.8) 10/28/22 03:04 Baso # (Auto) 0.0 10^3/uL (0.0-0.1) 10/28/22 03:04 Nucleated RBC % (auto) 0 % 10/28/22 03:04 Nucleated RBCs # 0.0 /100WBC 10/28/22 03:04 D-Dimer 0.45 ug/mLFEU (0-0.59) 10/26/22 18:50 Sodium 141 mmol/L (136-145) 10/28/22 03:04 Potassium 3.8 mmol/L (3.5-5.1) 10/28/22 03:04 Chloride 105 mmol/L (98-107) 10/28/22 03:04 Carbon Dioxide 27 mmol/L (22-29) 10/28/22 03:04 Anion Gap 12.8 (5-19) 10/28/22 03:04 BUN 15 mg/dL (8-23) 10/28/22 03:04 Creatinine 0.6 mg/dL (0.5-0.9) 10/28/22 03:04 GFR Calculation Not Reportable 10/28/22 03:04 Glucose 101 mg/dL (65-115) 10/28/22 03:04 Estimat Average Glucose 108 10/27/22 00:35 Hemoglobin A1c 5.4 % (4.0-6.0) 10/27/22 00:35 Calculated Osmolality 293 mOsm/kg (285-295) 10/28/22 03:04 Calcium 9.4 mg/dL (8.5-10.5) 10/28/22 03:04 Phosphorus 2.9 mg/dL (2.5-4.5) 10/27/22 00:35 Magnesium 1.8 mg/dL (1.7-2.3) 10/27/22 00:35 Iron 86 ug/dL (37-145) 10/26/22 18:50 TIBC 268 mcg/dl 10/26/22 18:50 % Saturation 32.0 % (20-50) 10/26/22 18:50 Unsat Iron Binding 182 ug/dL (112-347) 10/26/22 18:50 Total Bilirubin 0.4 mg/dL (0.15-1.2) 10/28/22 03:04 AST 17 U/L (0-32) 10/28/22 03:04 ALT 23 U/L (0-33) 10/28/22 03:04 Alkaline Phosphatase 47 U/L (35-105) 10/28/22 03:04 Troponin T Baseline 8 ng/L (0-10) 10/26/22 18:50 Troponin T 120 Minute 10.18 ng/L (0-10) H 10/26/22 20:50 Delta Troponin T 2.18 ABS# (0-10) 10/26/22 20:50 Troponin T Hi Sens 6Hr 9.54 ng/L (0-10) 10/27/22 00:35 Troponin T Hi Sens 6Hr Delta 1.54 ng/L (0-12) 10/27/22 00:35 NT-Pro-B Natriuret Pep 62 pg/mL (0-450) 10/26/22 18:50 Total Protein 6.7 g/dL (6.6-8.7) 10/28/22 03:04 Albumin 4.2 g/dL (3.5-5.2) 10/28/22 03:04 Globulin 2.5 g/dL (1.3-4.6) 10/28/22 03:04 Triglycerides 224 mg/dL (0-150) H 10/27/22 00:35 Cholesterol 230 mg/dL (0-200) H 10/27/22 00:35 LDL Cholesterol, Calc 142 mg/dL (50-129) H 10/27/22 00:35 HDL Cholesterol 43 mg/dL (60-100) L 10/27/22 00:35 LDL/HDL Ratio 3.30 RATIO (0.00-3.22) H 10/27/22 00:35 Cholesterol/HDL Ratio 5.35 mg/dL (0.0-4.40) H 10/27/22 00:35 Vitamin B12 610 pg/mL (232-1245) 10/26/22 18:50 Folate > 20.0 ng/mL (4.8-37.3) 10/27/22 00:35 Procalcitonin 0.04 ng/mL (0-0.5) 10/26/22 18:50 TSH 3.70 uIU/mL (0.27-4.20) 10/26/22 18:50 Urine Color Yellow (Yellow) 10/26/22 21:20 Urine Appearance Clear (CLEAR) 10/26/22 21:20 Urine pH 6.5 (5-7) 10/26/22 21:20 Ur Specific [place] 1.010 (1.005-1.030) 10/26/22 21:20 Urine Protein Neg (Negative) 10/26/22 21:20 Urine Glucose (UA) Trace (Normal) H 10/26/22 21:20 Urine Ketones Negative (Negative) 10/26/22 21:20 Urine Blood 2+ (Negative) H 10/26/22 21:20 Urine Nitrate Negative (Negative) 10/26/22 21:20 Urine Bilirubin Neg (Negative) 10/26/22 21:20 Urine Urobilinogen Norm mg/dL (Negative) 10/26/22 21:20 Ur Leukocyte Esterase Negative (Negative) 10/26/22 21:20 Urine RBC 0-4 /hpf (0-2) H 10/26/22 21:20 Urine WBC 0-4 /hpf (0-5) H 10/26/22 21:20 Ur Squamous Epith Cells 0-4 /hpf (0-5) H 10/26/22 21:20 Amorphous Sediment Not Reportable 10/26/22 21:20 Urine Bacteria Trace /hpf (NONE) 10/26/22 21:20 Vitals Last Vital Signs Temp 97.8 F 10/29/22 07:59 Pulse 66 10/29/22 13:33 Resp 21 H 10/29/22 13:33 BP 122/75 10/29/22 13:33 Pulse Ox 96 10/29/22 12:05 O2 Del Method Room Air 10/29/22 13:33 Discharge Plan Discharge Patient Disposition: Home Condition: Stable Prescriptions: New aspirin 81 mg Tablet,Delayed Release (Dr/Ec) 81 mg PO DAILY Qty: 30 1RF ezetimibe 10 mg Tablet 10 mg PO DAILY 30 Days Qty: 30 1RF losartan 50 mg Tablet 50 mg PO DAILY 30 Days Qty: 30 0RF isosorbide mononitrate 30 mg Tablet Extended Release 24 Hr 60 mg PO DAILY 30 Days Qty: 30 1RF Continued atorvastatin 20 mg tablet 20 mg PO DAILY clopidogrel 75 mg tablet 75 mg PO DAILY nitroglycerin 0.4 mg tablet, sublingual 0.4 mg sublingual PRN PRN (Reason: Chest Pain) Held hydrochlorothiazide 12.5 mg capsule 12.5 mg PO DAILY Hold Instructions: Resume on 11/12/22. Hold until PCP or cardiology clinic follow up with blood pressure log. Discontinued isosorbide mononitrate 30 mg tablet extended release 24 hr 30 mg PO DAILY losartan 25 mg tablet 25 mg PO DAILY Discharge Orders: Discharge Order (Routine); Ordered 10/29/22 Ordered By: Garth Ng Discharge Diet: Advance as tolerated, Usual diet and Cardiac Discharge Activity: Resume usual activity and Increase activity as tolerated Patient Instructions: Hypertension, Angina (GEN), Coronary Artery Disease (GEN), Opioid Safety Activity Restrictions/Additional Instructions: 1. No driving or operating machinery for at least 24 hours after cardiac cath. 2. Take medications as prescribed. 3. Follow up with PCP and cardiology in clinic. 4. Keep home blood pressure log and bring to outpatient appointments. Discharge Attestations Time Spent in Discharge Care*: greater than 30 min Quality Metrics Clinical Quality Measures [ No reported AMI, CVA or VTE this stay] Coding Level of Care Code Acute Code for Chg Fwd Diagnoses Chest pain R07.9 Atherosclerotic heart disease [place] coronary artery w/angina pectoris I25.119 Benign hypertension I10 Dyslipidemia E78.5
--- NOTE | 2022-10-29 15:57 | PC.NURSE ---
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 No hematoma noted. 1ml of air is removed from TR-band at 1333. 1ml of air is removed from TR-band at 1400. 2ml's of air is removed at 1423. 2 ml's of air is removed at 1450. 2 ml's of air is removed at 1515. 2 ml's of air is removed at 1527. 2 ml's of air is removed at 1534. 2 ml's of air is removed at 1540. TR-band is removed. No bleeding or hematoma is noted. A 2x2 and tegaderm dressing is applied.
== END 2022-10-29 16:53 | disposition home or self-care (01) | DRG 287 ==
PROVIDERS: Internal Medicine; Student in an Organized Health Care Education/Training Program; Admitting Provider Family Medicine; Visit Provider Internal Medicine
PROC: 4A023N7 Measurement of Cardiac Sampling and Pressure, Left Heart, Percutaneous Approach (ICD-10-PCS; principal; 2022-10-29 11:35)
DX: I25.110 Atherosclerotic heart disease of native coronary artery with unstable angina pectoris (principal); Z95.5 Presence of coronary angioplasty implant and graft; I16.0 Hypertensive urgency; I10 Essential (primary) hypertension; E78.5 Hyperlipidemia, unspecified; Z79.02 Long term (current) use of antithrombotics/antiplatelets; I25.2 Old myocardial infarction; Z87.11 Personal history of peptic ulcer disease
CPT/HCPCS: 36415; 78452; 80053; 80061; 81001; 82607; 82746; 83036; 83540; 83550; 83735; 83880; 84100; 84145; 84443; 84484; 85025; 85378; 93005; 93017; 93306; 93458; 94664; 96367; 96372; 96375; 99152; A9500; C1769; C1887; C1894; G0378; G0379; J1644; J1650; J2250; J2785; J3010; J3490; J7030; Q0163; Q9967

== ENCOUNTER → 2022-11-18 15:01 | Outpatient (BNVA) | payer MEDICARE, MEDICAID, SELFPAY | PROVIDERS: PCP Family Medicine; Visit Provider Nurse Practitioner Family | DX: I25.10 Atherosclerotic heart disease of native coronary artery without angina pectoris (principal); I10 Essential (primary) hypertension | CPT/HCPCS: 36415; 80048; 99214 ==

== ENCOUNTER → 2022-12-24 14:24 | Outpatient (BNVA) | payer MEDICARE, MEDICAID, SELFPAY | PROVIDERS: PCP Family Medicine; Visit Provider Internal Medicine | DX: I25.10 Atherosclerotic heart disease of native coronary artery without angina pectoris (principal); I10 Essential (primary) hypertension | CPT/HCPCS: 99214 ==

== ENCOUNTER → 2023-06-24 08:56 | Outpatient (BNVA) | payer MEDICARE, SELFPAY | PROVIDERS: PCP Family Medicine; Visit Provider Nurse Practitioner Family | DX: I25.10 Atherosclerotic heart disease of native coronary artery without angina pectoris (principal); I10 Essential (primary) hypertension | CPT/HCPCS: 99214 ==

== ENCOUNTER → 2023-12-09 08:57 | Outpatient (BNVA) | payer MEDICARE, MEDICAID, SELFPAY | PROVIDERS: PCP Family Medicine; Visit Provider Nurse Practitioner Family | DX: I10 Essential (primary) hypertension (principal); I25.10 Atherosclerotic heart disease of native coronary artery without angina pectoris; Z87.891 Personal history of nicotine dependence | CPT/HCPCS: 99214 ==

== ENCOUNTER 2023-12-09 12:54 | Emergency (ER) | payer MEDICARE, SELFPAY ==
--- NOTE | 2023-12-09 12:55 | ECG_ITS ---
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1945 Requested By: Tiki Christy Order Number: [id number] Donny MD: AASHISH HERRERA Measurements Intervals [place] Rate: 63 P: 58 MI: 144 QRS: -21 QRSD: 102 T: 53 QT: 440 QTc: 450 Interpretive Statements SINUS RHYTHM WITH SINUS ARRHYTHMIA BORDERLINE LEFT AXIS DEVIATION [QRS AXIS < -20] Compared to ECG 10/27/2022 00:50:33 Sinus bradycardia no longer present Electronically Signed On 12-10-2023 20:09:45 CDT by AASHISH HERRERA [id number] f
[2023-12-09 13:13] VITALS: BP 179/95; PULSE 60; RESP 16; TEMP 36.8; O2SAT 95; BMI 30.6
--- NOTE | 2023-12-09 13:31 | XR_ITS ---
WS: [id number] XR chest 1V portable [id number] REASON FOR EXAM: hypertension FINDINGS: Mild tortuosity of the thoracic aorta. The heart is at the upper limits of normal in size. Calcified granulomas disease in both hemithoraces. No focal lung lesion. No acute pulmonary parenchymal or pleural abnormality. Mild levoscoliosis of the thoracic spine with mild degenerative spondylosis. XR/XR chest 1V portable [id number] IMPRESSION: No acute chest abnormality.
[2023-12-09 14:31] LABS: Basophils % 0.7 %; Eosinophils # 0.1 10^3/uL (0.0-0.8); Eosinophils % 1.3 %; Hematocrit 43.1 % (36-47); Lymphocytes % 32.7 %; Mean Corpuscular HGB Conc 33.4 g/dL (30-55); Mean Corpuscular Hemoglobin 30.9 pg (27-33); Mean Corpuscular Volume 92.5 fl (85-98); Mean Platelet Volume 9.8 fL (7.4-10.4); Monocytes # 0.6 10^3/uL (0.2-0.9); Monocytes % 9.2 %; Neutrophils % 55.6 %; Nucleated Red Blood Cells % 0 %; Platelet Count 227 10^3/cmm (157-399); Red Blood Count 4.66 10^6/uL (3.85-5.65); White Blood Count 6.11 10^3/uL (3.29-11.43)
[2023-12-09 14:55] LABS: Alanine Aminotransferase 15 U/L (0-33); Albumin Level 4.6 g/dL (3.5-5.2); Alkaline Phosphatase 66 U/L (35-105); Anion Gap 14.5 (5-19); Aspartate Amino Transferase 14 U/L (0-32); Blood Urea Nitrogen 14 mg/dL (8-23); Calcium 9.8 mg/dL (8.5-10.5); Carbon Dioxide 26 mmol/L (22-29); Chloride 105 mmol/L (98-107); Creatinine Clr Calc Pharmacy 52.2756; Globulin 2.6 g/dL (1.3-4.6); Glucose 88 mg/dL (65-115); Osmolality Calculated 292 mOsm/kg (285-295); Potassium 4.5 mmol/L (3.5-5.1); Sodium 141 mmol/L (136-145); Total Bilirubin 0.4 mg/dL (0.15-1.2); Total Protein 7.2 g/dL (6.6-8.7)
[2023-12-09 14:57] LABS: Troponin(5th) Baseline 9 ng/L (0-10)
--- NOTE | 2023-12-09 15:45 | ECG_ITS ---
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
[2023-12-09 15:47] VITALS: PULSE 62; RESP 16; O2SAT 97
--- NOTE | 2023-12-09 15:52 | W.ED.DIZZY ---
Documented by User: Roly Ambrose DO 12/11/23 06:20 HPI - Dizziness General: Chief Complaint: Dizziness Stated Complaint: high BP, dizziness, SOB, chest tight Time Seen by Provider: 12/09/23 15:32 History of Present Illness: HPI Narrative: 78-year-old female presents emergency room with complaint of elevated blood pressure and some dizziness and headache no chest pain at this time. No shortness of breath. No difficulty speech swallowing or vision. No recent medication changes she has continued to take all her medications regularly. No pain into the neck back or arms Associated symptoms: Denies chest pain or chills Related Data Home Medications Medication Instructions Recorded Confirmed atorvastatin 20 mg tablet 20 mg PO DAILY 10/26/22 12/09/23 clopidogrel 75 mg tablet 75 mg PO DAILY 10/26/22 12/09/23 hydrochlorothiazide 12.5 mg capsule 12.5 mg PO DAILY 10/26/22 12/09/23 nitroglycerin 0.4 mg sublingual 0.4 mg sublingual PRN PRN Chest 10/26/22 12/09/23 tablet Pain niacin 500 mg capsule,extended 500 mg PO BID 12/09/23 12/09/23 release Previous Rx's Medication Instructions Recorded aspirin 81 mg tablet,delayed 81 mg PO DAILY #30 tabs 10/29/22 release ezetimibe 10 mg tablet 10 mg PO DAILY 30 days #30 tabs 10/29/22 isosorbide mononitrate 30 mg 60 mg (2 x 30 mg) PO DAILY 30 days 10/29/22 tablet,extended release 24 hr #30 tabs losartan 50 mg tablet 50 mg PO DAILY #90 tabs 06/24/23 Allergies Allergy/AdvReac Type Severity Reaction Status Date / Time ciprofloxacin [From Cipro] Allergy ALGY-Rash Verified 12/09/23 13:19 Penicillins Allergy ALGY-Rash Verified 12/09/23 13:19 Sulfa (Sulfonamide Allergy ALGY-Rash Verified 12/09/23 13:19 Antibiotics) Review of Systems Const: Denies: fever(s) or chills Card: Denies: chest pain Resp: Denies: dyspnea GI: Denies: abdominal pain : Denies: dysuria, urinary frequency or urinary urgency Musc: Denies: neck pain or back pain Skin/Breast: Denies: rash PFSH ED PFSH: Medical History Dyslipidemia Benign hypertension Atherosclerotic heart disease [place] coronary artery w/angina pectoris CAD (coronary artery disease) Hypertension Surgical History S/P coronary artery stent placement Once in January 2022 for MD and RCA in August 2022 for unstable angina Family History Other CAD (coronary artery disease) Social History Smoking and tobacco/nicotine status: never used tobacco/nicotine Alcohol intake: never Caregiver/support person: Yes Lives independently: Yes Household members: spouse Housing: House Marital status: Physical Exam Const: COMMON NORMALS: no acute distress GENERAL APPEARANCE: cooperative and comfortable ORIENTATION/CONSCIOUSNESS: Yes awake, Yes oriented to person, Yes oriented to place and Yes oriented to time HENMT: COMMON NORMALS: normocephalic, atraumatic and hearing grossly normal bilaterally HEAD & SCALP: normocephalic and atraumatic Resp: COMMON NORMALS: normal respiratory effort, No retractions, No use of accessory muscles and clear to auscultation bilaterally AUSCULTATION: clear to auscultation bilaterally Cardio: COMMON NORMALS: regular rate, regular rhythm and No murmurs present (Cardio) RATE: regular rate RHYTHM: regular rhythm GI: COMMON NORMALS: Soft to palpation and No hepatosplenomegaly present AUSCULTATION: Yes normoactive bowel sounds PALPATION: Yes Soft to palpation, No Tenderness to palpation present (GI), No Guarding due to palpation present (GI) and Yes No hepatosplenomegaly present Extremity: COMMON NORMALS: normal to inspection, capillary refill normal, no clubbing, cyanosis or edema, no calf tenderness and no pedal edema Neuro: SENSORIUM/ORIENTATION: Yes oriented to person, Yes oriented to place and Yes oriented to time Skin: COMMON NORMALS: no rashes or lesions noted GENERAL SKIN EXAM: no rashes or lesions noted Course Vital Signs: Vital signs: Vital Signs Temperature 98.2 F 12/09/23 13:13 Pulse Rate 82 12/09/23 18:49 Respiratory Rate 16 12/09/23 17:58 Blood Pressure 128/60 12/09/23 18:49 Pulse Oximetry 96 12/09/23 18:49 Oxygen Delivery Me thod Room Air 12/09/23 17:58 MDM - Dizziness Medical Decision Making Care signed out to Dr. Johnson at change of shift. See final notes for diagnosis and disposition. Care turned over to myself at shift change, lab work was reviewed as well as chest x-ray and head CT, troponin was negative benign these results was discussed with the patient. Patient says she feels comfortable going home. Patient be discharged home. Lab Data 12/09/23 13:40 12/09/23 13:40 Radiology Impressions Chest X-Ray 12/09/23 13:31 IMPRESSION: No acute chest abnormality. Head CT 12/09/23 16:03 IMPRESSION: No acute intracranial abnormality. Laboratory Results WBC 6.11 10^3/uL (3.29-11.43) 12/09/23 13:40 RBC 4.66 10^6/uL (3.85-5.65) 12/09/23 13:40 Hgb 14.40 g/dL (11.27-16.99) 12/09/23 13:40 Hct 43.1 % (36-47) 12/09/23 13:40 MCV 92.5 fl (85-98) 12/09/23 13:40 MCH 30.9 pg (27-33) 12/09/23 13:40 MCHC 33.4 g/dL (30-55) 12/09/23 13:40 RDW 13.0 % (12.1-15.1) 12/09/23 13:40 Plt Count 227 10^3/cmm (157-399) 12/09/23 13:40 MPV 9.8 fL (7.4-10.4) 12/09/23 13:40 Neut % (Auto) 55.6 % 12/09/23 13:40 Lymph % (Auto) 32.7 % 12/09/23 13:40 [place] % (Auto) 9.2 % 12/09/23 13:40 Eos % (Auto) 1.3 % 12/09/23 13:40 Baso % (Auto) 0.7 % 12/09/23 13:40 Neut # (Auto) 3.40 10^3/uL (1.8-7.7) 12/09/23 13:40 Lymph # (Auto) 2.0 10^3/uL (0.8-4.8) 12/09/23 13:40 [place] # (Auto) 0.6 10^3/uL (0.2-0.9) 12/09/23 13:40 Eos # (Auto) 0.1 10^3/uL (0.0-0.8) 12/09/23 13:40 Baso # (Auto) 0.0 10^3/uL (0.0-0.1) 12/09/23 13:40 Nucleated RBC % (auto) 0 % 12/09/23 13:40 Nucleated RBCs # 0.0 /100WBC 12/09/23 13:40 Sodium 141 mmol/L (136-145) 12/09/23 13:40 Potassium 4.5 mmol/L (3.5-5.1) 12/09/23 13:40 Chloride 105 mmol/L (98-107) 12/09/23 13:40 Carbon Dioxide 26 mmol/L (22-29) 12/09/23 13:40 Anion Gap 14.5 (5-19) 12/09/23 13:40 BUN 14 mg/dL (8-23) 12/09/23 13:40 Creatinine 0.5 mg/dL (0.5-0.9) 12/09/23 13:40 GFR Calculation Not Reportable 12/09/23 13:40 Glucose 88 mg/dL (65-115) 12/09/23 13:40 Calculated Osmolality 292 mOsm/kg (285-295) 12/09/23 13:40 Calcium 9.8 mg/dL (8.5-10.5) 12/09/23 13:40 Total Bilirubin 0.4 mg/dL (0.15-1.2) 12/09/23 13:40 AST 14 U/L (0-32) 12/09/23 13:40 ALT 15 U/L (0-33) 12/09/23 13:40 Alkaline Phosphatase 66 U/L (35-105) 12/09/23 13:40 Troponin T Baseline 9 ng/L (0-10) 12/09/23 13:40 Troponin T 120 Minute 8.60 ng/L (0-10) 12/09/23 15:26 Delta Troponin T -0.40 ABS# (0-10) L 12/09/23 15:26 Total Protein 7.2 g/dL (6.6-8.7) 12/09/23 13:40 Albumin 4.6 g/dL (3.5-5.2) 12/09/23 13:40 Globulin 2.6 g/dL (1.3-4.6) 12/09/23 13:40 Urine Color Yellow (Yellow) 12/09/23 17:00 Urine Appearance Clear (CLEAR) 12/09/23 17:00 Urine pH 7.0 (5-7) 12/09/23 17:00 Ur Specific [place] 1.009 (1.005-1.030) 12/09/23 17:00 Urine Protein Negative (Negative) 12/09/23 17:00 Urine Glucose (UA) Negative (Normal) 12/09/23 17:00 Urine Ketones Negative (Negative) 12/09/23 17:00 Urine Blood Negative (Negative) 12/09/23 17:00 Urine Nitrate Negative (Negative) 12/09/23 17:00 Urine Bilirubin Negative (Negative) 12/09/23 17:00 Urine Urobilinogen 0.2 mg/dL (Negative) 12/09/23 17:00 Ur Leukocyte Esterase Negative (Negative) 12/09/23 17:00 Urine RBC 3-5 /hpf (0-2) 12/09/23 17:00 Urine WBC 0-5 /hpf (0-5) 12/09/23 17:00 Ur Squamous Epith Cells 0-5 /hpf (0-5) 12/09/23 17:00 Amorphous Sediment Not Reportable 12/09/23 17:00 Urine Bacteria None seen /hpf (NONE) 12/09/23 17:00 Hyaline Casts 0-4 /lpf H 12/09/23 17:00 Discharge Plan Discharge Patient Disposition: Home Clinical Impression: Benign hypertension Condition: Stable Prescriptions: No Action niacin 500 mg capsule, extended release 500 mg PO BID losartan 50 mg tablet 50 mg PO DAILY Qty: 90 3RF atorvastatin 20 mg tablet 20 mg PO DAILY clopidogrel 75 mg tablet 75 mg PO DAILY hydrochlorothiazide 12.5 mg capsule 12.5 mg PO DAILY Hold Instructions: Resume on 11/12/22. Hold until PCP or cardiology clinic follow up with blood pressure log. nitroglycerin 0.4 mg tablet, sublingual 0.4 mg sublingual PRN PRN (Reason: Chest Pain) isosorbide mononitrate 30 mg Tablet Extended Release 24 Hr 60 mg PO DAILY 30 Days Qty: 30 1RF aspirin 81 mg Tablet,Delayed Release (Dr/Ec) 81 mg PO DAILY Qty: 30 1RF ezetimibe 10 mg Tablet 10 mg PO DAILY 30 Days Qty: 30 1RF Discharge Orders: Discharge ED (Routine); Ordered 12/09/23 Ordered By: Gordon Johnson Referrals: Yasmin Kumar APRN [Primary Care Provider] - 1 week Patient Instructions: Hypertension Activity Restrictions/Additional Instructions: Thank you for choosing [facility] for your healthcare needs today. Please realize that you were seen in the emergency department and that we are providing you with an emergency medical screening exam and this may not be a complete and all exclusive of all testing and/or medical workup we may need to determine your element or severity of your illness. It is very important that you follow-up as instructed with your primary care provider or specialist for the additional evaluation and to discuss your medical treatment plan. You may return to the emergency department should you have concerns or if your condition changes or worsens in any way. Coding Level of Care Code ED Dietary Aide for Chg Fwd Documented by User: Gordon Johnson DO 12/09/23 23:33 HPI - Dizziness General: Chief Complaint: Dizziness Stated Complaint: high BP, dizziness, SOB, chest tight Time Seen by Provider: 12/09/23 15:32 Related Data Home Medications Medication Instructions Recorded Confirmed atorvastatin 20 mg tablet 20 mg PO DAILY 10/26/22 12/09/23 clopidogrel 75 mg tablet 75 mg PO DAILY 10/26/22 12/09/23 hydrochlorothiazide 12.5 mg capsule 12.5 mg PO DAILY 10/26/22 12/09/23 nitroglycerin 0.4 mg sublingual 0.4 mg sublingual PRN PRN Chest 10/26/22 12/09/23 tablet Pain niacin 500 mg capsule,extended 500 mg PO BID 12/09/23 12/09/23 release Previous Rx's Medication Instructions Recorded aspirin 81 mg tablet,delayed 81 mg PO DAILY #30 tabs 10/29/22 release ezetimibe 10 mg tablet 10 mg PO DAILY 30 days #30 tabs 10/29/22 isosorbide mononitrate 30 mg 60 mg (2 x 30 mg) PO DAILY 30 days 10/29/22 tablet,extended release 24 hr #30 tabs losartan 50 mg tablet 50 mg PO DAILY #90 tabs 06/24/23 Allergies Allergy/AdvReac Type Severity Reaction Status Date / Time ciprofloxacin [From Cipro] Allergy ALGY-Rash Verified 12/09/23 13:19 Penicillins Allergy ALGY-Rash Verified 12/09/23 13:19 Sulfa (Sulfonamide Allergy ALGY-Rash Verified 12/09/23 13:19 Antibiotics) PFSH ED PFSH: Medical History Dyslipidemia Benign hypertension Atherosclerotic heart disease [place] coronary artery w/angina pectoris CAD (coronary artery disease) Hypertension Surgical History S/P coronary artery stent placement Once in January 2022 for MD and RCA in August 2022 for unstable angina Family History Other CAD (coronary artery disease) Social History Smoking and tobacco/nicotine status: never used tobacco/nicotine Alcohol intake: never Caregiver/support person: Yes Lives independently: Yes Household members: spouse Housing: House Marital status: Course Vital Signs: Vital signs: Vital Signs Temperature 98.2 F 12/09/23 13:13 Pulse Rate 82 12/09/23 18:49 Respiratory Rate 16 12/09/23 17:58 Blood Pressure 128/60 12/09/23 18:49 Pulse Oximetry 96 12/09/23 18:49 Oxygen Delivery Me thod Room Air 12/09/23 17:58 MDM - Dizziness Medical Decision Making Care turned over to myself at shift change, lab work was reviewed as well as chest x-ray and head CT, troponin was negative benign these results was discussed with the patient. Patient says she feels comfortable going home. Patient be discharged home. Lab Data 12/09/23 13:40 12/09/23 13:40 Radiology Impressions Chest X-Ray 12/09/23 13:31 IMPRESSION: No acute chest abnormality. Head CT 12/09/23 16:03 IMPRESSION: No acute intracranial abnormality. Laboratory Results WBC 6.11 10^3/uL (3.29-11.43) 12/09/23 13:40 RBC 4.66 10^6/uL (3.85-5.65) 12/09/23 13:40 Hgb 14.40 g/dL (11.27-16.99) 12/09/23 13:40 Hct 43.1 % (36-47) 12/09/23 13:40 MCV 92.5 fl (85-98) 12/09/23 13:40 MCH 30.9 pg (27-33) 12/09/23 13:40 MCHC 33.4 g/dL (30-55) 12/09/23 13:40 RDW 13.0 % (12.1-15.1) 12/09/23 13:40 Plt Count 227 10^3/cmm (157-399) 12/09/23 13:40 MPV 9.8 fL (7.4-10.4) 12/09/23 13:40 Neut % (Auto) 55.6 % 12/09/23 13:40 Lymph % (Auto) 32.7 % 12/09/23 13:40 [place] % (Auto) 9.2 % 12/09/23 13:40 Eos % (Auto) 1.3 % 12/09/23 13:40 Baso % (Auto) 0.7 % 12/09/23 13:40 Neut # (Auto) 3.40 10^3/uL (1.8-7.7) 12/09/23 13:40 Lymph # (Auto) 2.0 10^3/uL (0.8-4.8) 12/09/23 13:40 [place] # (Auto) 0.6 10^3/uL (0.2-0.9) 12/09/23 13:40 Eos # (Auto) 0.1 10^3/uL (0.0-0.8) 12/09/23 13:40 Baso # (Auto) 0.0 10^3/uL (0.0-0.1) 12/09/23 13:40 Nucleated RBC % (auto) 0 % 12/09/23 13:40 Nucleated RBCs # 0.0 /100WBC 12/09/23 13:40 Sodium 141 mmol/L (136-145) 12/09/23 13:40 Potassium 4.5 mmol/L (3.5-5.1) 12/09/23 13:40 Chloride 105 mmol/L (98-107) 12/09/23 13:40 Carbon Dioxide 26 mmol/L (22-29) 12/09/23 13:40 Anion Gap 14.5 (5-19) 12/09/23 13:40 BUN 14 mg/dL (8-23) 12/09/23 13:40 Creatinine 0.5 mg/dL (0.5-0.9) 12/09/23 13:40 GFR Calculation Not Reportable 12/09/23 13:40 Glucose 88 mg/dL (65-115) 12/09/23 13:40 Calculated Osmolality 292 mOsm/kg (285-295) 12/09/23 13:40 Calcium 9.8 mg/dL (8.5-10.5) 12/09/23 13:40 Total Bilirubin 0.4 mg/dL (0.15-1.2) 12/09/23 13:40 AST 14 U/L (0-32) 12/09/23 13:40 ALT 15 U/L (0-33) 12/09/23 13:40 Alkaline Phosphatase 66 U/L (35-105) 12/09/23 13:40 Troponin T Baseline 9 ng/L (0-10) 12/09/23 13:40 Troponin T 120 Minute 8.60 ng/L (0-10) 12/09/23 15:26 Delta Troponin T -0.40 ABS# (0-10) L 12/09/23 15:26 Total Protein 7.2 g/dL (6.6-8.7) 12/09/23 13:40 Albumin 4.6 g/dL (3.5-5.2) 12/09/23 13:40 Globulin 2.6 g/dL (1.3-4.6) 12/09/23 13:40 Urine Color Yellow (Yellow) 12/09/23 17:00 Urine Appearance Clear (CLEAR) 12/09/23 17:00 Urine pH 7.0 (5-7) 12/09/23 17:00 Ur Specific [place] 1.009 (1.005-1.030) 12/09/23 17:00 Urine Protein Negative (Negative) 12/09/23 17:00 Urine Glucose (UA) Negative (Normal) 12/09/23 17:00 Urine Ketones Negative (Negative) 12/09/23 17:00 Urine Blood Negative (Negative) 12/09/23 17:00 Urine Nitrate Negative (Negative) 12/09/23 17:00 Urine Bilirubin Negative (Negative) 12/09/23 17:00 Urine Urobilinogen 0.2 mg/dL (Negative) 12/09/23 17:00 Ur Leukocyte Esterase Negative (Negative) 12/09/23 17:00 Urine RBC 3-5 /hpf (0-2) 12/09/23 17:00 Urine WBC 0-5 /hpf (0-5) 12/09/23 17:00 Ur Squamous Epith Cells 0-5 /hpf (0-5) 12/09/23 17:00 Amorphous Sediment Not Reportable 12/09/23 17:00 Urine Bacteria None seen /hpf (NONE) 12/09/23 17:00 Hyaline Casts 0-4 /lpf H 12/09/23 17:00 All radiology interpretation(s) finalized by discharge Discharge Plan Discharge Patient Disposition: Home Clinical Impression: Benign hypertension Condition: Stable Prescriptions: No Action niacin 500 mg capsule, extended release 500 mg PO BID losartan 50 mg tablet 50 mg PO DAILY Qty: 90 3RF atorvastatin 20 mg tablet 20 mg PO DAILY clopidogrel 75 mg tablet 75 mg PO DAILY hydrochlorothiazide 12.5 mg capsule 12.5 mg PO DAILY Hold Instructions: Resume on 11/12/22. Hold until PCP or cardiology clinic follow up with blood pressure log. nitroglycerin 0.4 mg tablet, sublingual 0.4 mg sublingual PRN PRN (Reason: Chest Pain) isosorbide mononitrate 30 mg Tablet Extended Release 24 Hr 60 mg PO DAILY 30 Days Qty: 30 1RF aspirin 81 mg Tablet,Delayed Release (Dr/Ec) 81 mg PO DAILY Qty: 30 1RF ezetimibe 10 mg Tablet 10 mg PO DAILY 30 Days Qty: 30 1RF Discharge Orders: Discharge ED (Routine); Ordered 12/09/23 Ordered By: Gordon Johnson Referrals: Yasmin Kumar APRN [Primary Care Provider] - 1 week Patient Instructions: Hypertension Activity Restrictions/Additional Instructions: Thank you for choosing [facility] for your healthcare needs today. Please realize that you were seen in the emergency department and that we are providing you with an emergency medical screening exam and this may not be a complete and all exclusive of all testing and/or medical workup we may need to determine your element or severity of your illness. It is very important that you follow-up as instructed with your primary care provider or specialist for the additional evaluation and to discuss your medical treatment plan. You may return to the emergency department should you have concerns or if your condition changes or worsens in any way. Coding Level of Care Code ED Dietary Aide for Jaden Guevara
--- NOTE | 2023-12-09 16:03 | CTR_ITS ---
PROCEDURE INFORMATION: Exam: CT Head Without Contrast Exam date and time: 12/09/2023 5:10 PM Age: 78 years old Clinical indication: Dizziness; Additional info: Elevated blood pressure headache dizziness TECHNIQUE: Imaging protocol: Computed tomography of the head without contrast. Radiation optimization: All CT scans at this facility use at least one of these dose optimization techniques: automated exposure control; mA and/or kV adjustment per patient size (includes targeted exams where dose is matched to clinical indication); or iterative reconstruction. COMPARISON: No relevant prior studies available. RADIATION DOSE METRICS: Total DLP (mGy-cm): 1055 FINDINGS: Brain: No hemorrhage. No edema. Moderate diffuse cerebral atrophy and mild sequela of chronic small vessel ischemic disease. No mass effect. Cerebral ventricles: No ventriculomegaly. Paranasal sinuses: Visualized sinuses are unremarkable. No fluid levels. Mastoid air cells: Visualized mastoid air cells are well aerated. Bones: Unremarkable. No acute fracture. Soft tissues: Unremarkable. CT/CT head wo con* [id number] IMPRESSION: No acute intracranial abnormality.
[2023-12-09] MEDS: hyDRALAzine 20 mg/mL INJ 1 mL 10 MG IVP ×2 (16:12→16:58)
[2023-12-09] MEDS: amlodipine 10 mg Tablet PO (16:58)
[2023-12-09 17:00] VITALS: BP 172/80; PULSE 72; RESP 16; O2SAT 100
[2023-12-09 17:18] LABS: Bilirubin Urine Negative (Negative); Blood Urine Negative (Negative); Glucose Urine UA Negative (Normal); Ketones Urine Negative (Negative); Leukocyte Esterase Urine Negative (Negative); Nitrate Urine Negative (Negative); Protein Urine Negative (Negative); Specific Gravity, Urine 1.009 (1.005-1.030); Urine Appearance Clear (CLEAR); Urine Color Yellow (Yellow); Urobilinogen Urine 0.2 mg/dL (Negative)
[2023-12-09 17:24] LABS: Bacteria Urine None Seen /hpf; Hyaline Casts Urine 0-4 /lpf; Squamous Epithelial Cell Urine 0-5 /hpf (0-5); WBC Urine 0-5 /hpf (0-5)
[2023-12-09 17:39] VITALS: BP 158/72; PULSE 98; RESP 16; O2SAT 97
[2023-12-09 17:58] VITALS: BP 123/66; PULSE 79; RESP 16; O2SAT 98
[2023-12-09 18:49] VITALS: BP 128/60; PULSE 82; O2SAT 96
== END 2023-12-09 18:50 | disposition home or self-care (01) ==
PROVIDERS: Emergency Medicine; Emergency Provider Family Medicine; PCP Family Medicine
DX: G56.03 Carpal tunnel syndrome, bilateral upper limbs (principal); R29.90 Unspecified symptoms and signs involving the nervous system; I10 Essential (primary) hypertension; Z79.02 Long term (current) use of antithrombotics/antiplatelets; Z79.82 Long term (current) use of aspirin; E78.5 Hyperlipidemia, unspecified; I25.10 Atherosclerotic heart disease of native coronary artery without angina pectoris
CPT/HCPCS: 36415; 70450; 71045; 80053; 81001; 84484; 85025; 93005; 96374; 96376; 99202; 99203; 99285; J0360

== ENCOUNTER → 2024-01-15 12:03 | Outpatient (BNVA) | payer MEDICARE, SELFPAY | PROVIDERS: PCP Family Medicine; Referring Provider Specialist; Visit Provider Specialist | DX: G56.03 Carpal tunnel syndrome, bilateral upper limbs (principal) | CPT/HCPCS: 95910 ==

== ENCOUNTER → 2024-02-24 09:22 | Outpatient (BNVA) | payer MEDICARE, MEDICAID, SELFPAY | PROVIDERS: PCP Family Medicine; Visit Provider Specialist | DX: G56.03 Carpal tunnel syndrome, bilateral upper limbs (principal) | CPT/HCPCS: 99213 ==

== ENCOUNTER → 2024-03-23 11:08 | Outpatient (BNVA) | payer MEDICARE, MEDICAID, SELFPAY | PROVIDERS: PCP Family Medicine; Visit Provider Physician Assistant | DX: G56.03 Carpal tunnel syndrome, bilateral upper limbs (principal); G56.22 Lesion of ulnar nerve, left upper limb | CPT/HCPCS: 73110; 99204 ==

== ENCOUNTER 2024-04-15 06:16 | Day surgery (SDC) | payer MEDICARE, MEDICAID, SELFPAY ==
[2024-04-15] VITALS (7 sets, daily range): BP systolic 119–180; BP diastolic 64–88; PULSE 59–65; RESP 14–16; TEMP 36.1–36.4; O2SAT 93–98; BMI 28.7
--- NOTE | 2024-04-15 06:41 | P.ANESASSM_ITS ---
Pre-Anesthetic Assessment Height/Weight: Height 5 ft 1 in Weight 152 lb Temp Pulse Resp BP Pulse Ox O2 Del Method 97.3 F L 62 16 180/88 96 Room Air 04/15/24 06:33 04/15/24 06:33 04/15/24 06:33 04/15/24 06:33 04/15/24 06:33 04/15/24 06:33 Preop Diagnosis: Carpal/cubital tunnel syndrome Operation Date: 04/15/24 07:45 Proposed Procedures p Carpal Tunnel Release(Left) - Gildardo Rick, DO s Cubital Tunnel Release(Left) - Gildardo Rick, DO s Ulnar Nerve Transposition(Left) - Gildardo Woods, DO Was Beta Samson taken within 24 hours: N/A Was Clonidine taken within 24 hours: N/A Last intake: Intake Last Liquid Date 04/14/24 Last Liquid Time 20:00 Last Solid Date 04/14/24 Last Solid Time 20:00 Social No alcohol and No tobacco Exam alert, oriented x 3, clear to auscultation bilaterally and regular rate & rhythm Airway Submandibular: within normal limits Cervical ROM: within normal limits Mallampati: Class II Dentition: full Anesthetic Plan ASA status: 3 Anesthesia: Choice and Regional (specify below) Other: No prior issues with anesthesia NPO since yesterday evening History of hypertension on losartan and hydrochlorothiazide. Preop BP 180/88 Prior CAD history Labs 12/09/2023 reviewed and acceptable for procedure EKG sinus bradycardia Negative stress test 10/2022 Prior echo in 2022 showing EF 55 to 60% with no wall motion abnormalities Plan for MAC anesthetic with preop nerve block Medications/Allergies Home Medications ?Medication ?Instructions ?Recorded ?Confirmed ?Last Taken ?Type hydrochlorothiazide 12.5 mg capsule 12.5 mg PO DAILY 0 10/26/22 04/14/24 04/14/24 History Held on 10/29/22. Instructions: Resume on 11/12/22. Hold until PCP or cardiology clinic follow up with blood pressure log. nitroglycerin 0.4 mg sublingual 0.4 mg sublingual PRN PRN Chest 10/26/22 04/14/24 10/26/22 History tablet Pain aspirin 81 mg tablet,delayed 81 mg PO DAILY #30 tabs 0 8/29/23 02/12/25 02/05/25 Rx release ezetimibe 10 mg tablet 10 mg PO DAILY 30 days #30 t abs 10/29/22 04/14/24 04/13/24 Rx isosorbide mononitrate 30 mg 60 mg (2 x 30 mg) PO ELVIN Y 30 days 10/29/22 04/14/24 04/14/24 Rx tablet,extended release 24 hr #30 tabs losartan 50 mg tablet 50 mg PO DAILY #90 tabs 06/0204/14/24 04/13/24 Rx niacin 500 mg capsule,extended 500 mg PO BID 12/09/23 04/14/24 Unknown History release Allergies Allergy/AdvReac Type Severity Reaction Status Date / Time latex Allergy Severe ADR-Itching Verified 04/14/24 10:47 ciprofloxacin (From Cipro) Allergy ALGY-Rash Verified 04/14/24 10:47 Penicillins Allergy ALGY-Rash Verified 04/14/24 10:47 Sulfa (Sulfonamide Allergy ALGY-Rash Verified 04/14/24 10:47 Antibiotics) [facility] Anesthesia Medical History Dyslipidemia Benign hypertension Atherosclerotic heart disease [place] coronary artery w/angina pectoris CAD (coronary artery disease) Hypertension Surgical History S/P coronary artery stent placement Once in January [address] and RCA in August 2022 for unstable angina Family History Other CAD (coronary artery disease) Social History Smoking and tobacco/nicotine status: never used tobacco/nicotine Alcohol intake: never Caregiver/support person: Yes Lives independently: Yes Household members: spouse Housing: House Marital status: Data Anesthesia 04/15/24 06:44 Cardiac Studies: 2 Echocardiogram 10/27/22 Sestamibi Stress Test (Cardiology) 10/28
[2024-04-15] MEDS: sodium chloride 0.9% 1,000 ML 30 ML IV (06:44)
[2024-04-15] MEDS: ketorolac 30 mg/mL INJ IVP (06:53)
--- NOTE | 2024-04-15 07:04 | ECG_ITS ---
[facility] Test Date: 2024-04-15 Pat Name: Yasmin Crockett Department: Room: Gender: Female T[employer]apper: : [phone] Requested By: Dorian Varela Order Number: [id number] Reading MD: AASHISH HERRERA Measurements Intervals [place] Rate: 62 P: 52 W[place]: 151 QRS: -12 QRSD: 88 T: 29 QT: 401 QTc: 409 Interpretive Statements SINUS RHYTHM NONSPECIFIC T-WAVE ABNORMALITY Compared to ECG 12/09/2023 15:45:26 T-wave abnormality now present Sinus bradycardia no longer present Electronically Signed On 04-17-2024 19:36:16 PRN PHYSICAL THERAPIST by AASHISH HERRERA [email or web address]
--- NOTE | 2024-04-15 07:07 | W.PM.OPSUD ---
Surgery/Procedure H&P Update DATE OF PROCEDURE: April 15, 2024 DATE H&P PERFORMED: 03/23/24 H&P UPDATE INFORMATION: I have reviewed H&P completed within last 30 days, I have examined patient prior to procedure and No changes to prior documentation PREOP DIAGNOSIS: Left carpal/cubital tunnel syndrome PRIMARY INDICATION FOR PROCEDURE: Left carpal tunnel syndrome, left cubital tunnel syndrome PLANNED PROCEDURE: Operation Date: 04/15/24 07:45 Proposed Procedures p Carpal Tunnel Release(Left) - DO candace Byers Cubital Tunnel Release(Left) - DO candace Byers Ulnar Nerve Transposition(Left) - Gildardo Cabrera DO
[2024-04-15 07:14] LABS: Blood Urea Nitrogen 12 mg/dL (8-23); Calcium 9.7 mg/dL (8.5-10.5); Carbon Dioxide 24 mmol/L (22-29); Chloride 102 mmol/L (98-107); Creatinine Clr Calc Pharmacy 50.6423; Glucose 104 mg/dL (65-115); Osmolality Calculated 288 mOsm/kg (285-295); Sodium 139 mmol/L (136-145)
[2024-04-15 07:29] LABS: Anion Gap 17.1 (5-19); Potassium 4.1 mmol/L (3.5-5.1)
--- NOTE | 2024-04-15 07:29 | ANES.PROC ---
Anesthesia Procedures Procedure/Date: 04/15/24 Nerve Block ^: Nerve Block 1: Main Anesthesia: other (100mcg fentanyl given) Time Out Performed: Yes Consent: requested by attending/covering physician Nerve block location: supraclavicular Anesthesia monitors applied: pulse oximetry, EKG, BP cuff and oxygen Nerve block position: supine Anesthetic Used: ropivicaine 0.5% Amount of anesthesia used (mL): 30 Ultrasound used to: recognize landmarks Nerve Stimulator Used?: Yes Interscalene/Femoral BLK: other needle (pjunk 4inch) Injection: neg aspiration of heme Patient Tolerated Procedure: well Complications: none Additional Comments: 4mg decadron added to block
--- NOTE | 2024-04-15 07:32 | SUR.PREOP ---
Patient monitored during nerve block for left carpal tunnel/ulnar nerve procedure. Patient on 2L O2, VS are 190/89, 65hr, 98o2, 17rr. Patient tolerated well.
--- NOTE | 2024-04-15 08:19 | PM.OP ---
Operative Report Date of procedure: April 15, 2024 Surgeon: Gildardo Cabrera DO Manager Supply Chain Planning: Garth Cabrera PA-C: PA was necessary for assistance in this case with hand positioning to execute the procedure, retraction and protection of neurovascular structures as well as to assist with wound closure and dressing application. Procedure: Preoperative diagnosis: Left carpal tunnel syndrome, left cubital tunnel syndrome Postop Diagnosis: Same Procedure done: Left carpal tunnel release Left?cubital tunnel tunnel release (ulnar nerve decompression at elbow) Surgeon: Gildardo Cabrera DO Estimated blood loss: 15 mL Tourniquet? 15 minutes IV fluids: 500 mL Complications: None Findings: See operative report narrative Condition: stable Disposition: same day Brief History: Patient's been seen and worked up in the outpatient setting and findings consistent with preoperative diagnosis.? Patient has Left carpal tunnel syndrome as well as Left?cubital tunnel syndrome which has been worked up in the outpatient setting has physical exam findings consistent with this as well as confirmatory nerve conduction/EMG nerve conduction study consistent with diagnosis.? Patient's failed conservative treatment.? As result through shared decision making agreed to proceed with? Left carpal tunnel and Left?cubital tunnel release With possible ulnar nerve transpositionwe talked about treatment options as far as nonoperative and operative intervention.? Understands risk benefits complication alternatives surgical nonsurgical treatment options.? Understanding risks pt agrees to proceed with surgical intervention. All questions answered. Consent obtained in preop. Procedure: Patient seen evaluate in the preoperative holding area.? Consent was reviewed and signed with patient.? Correct extremity marked.? Patient seen evaluated by anesthesia department once cleared for surgery was then taken back to the operative suite placed in supine position all bony prominences well-padded patient properly secured to bed.? Left upper extremity placed onto armboard.? Nonsterile tourniquet applied Left upper arm.? Patient then underwent anesthesia per the anesthesia department.? Patient's Left upper extremity was then prepped and draped in standard orthopedic fashion.? Final timeout performed.? Patient received appropriate preoperative antibiotics. Esmarch was used exsanguinate the Left upper extremity.? Tourniquet was insufflated to 250 mmHg. I started with the carpal tunnel release first.? I made a standard open carpal tunnel release starting with the distal most extent in the palm at the Fontana's cardinal line and the incision line was made in line with the fourth ray and ended just distal to the wrist crease.? Sharp scalpel incision was made through skin and subcutaneous tissue I then utilizing self retainer then began to dissect with dissection scissors split longitudinally the palmar fascia.? Next I then utilizing my assistant quality manager Clau retractors subsequently utilizing scalpel feathered through the palmaris brevis as well as through the transverse carpal ligament distally.? Once I encountered the floor of the transverse carpal ligament and entered into the carpal tunnel I then switched to dissection scissors.? Carefully released the distal extent of the transverse carpal ligament to the palmar fat.? Care was to protect the recurrent branch and not injured this during this part of the case.? Next I then placed a Pearcy underneath the transverse carpal ligament proximally to protect the nerve in the carpal tunnel contents.? And then I subsequently under loupe magnification utilize my dissection scissors to release the transverse carpal ligament into the antebrachial fascia under direct visualization with care to keep my scissors with a curved ulnarly away from the palmar cutaneous branch.? The transverse carpal was then completely decompressed proximally and a Pearcy was then placed both distally and proximally throughout the carpal tunnel and had complete decompression of the nerve.? The nerve did appear to have hourglass shape as it went through the carpal tunnel.? With significant irritation noted around the nerve.? No masses were noted within the contents of the carpal tunnel.? This completed the carpal tunnel release and then I subsequently irrigated the wound bed and placed a wet Ray-Rufus into the incision for later closure. Next marked out the landmarks of the Left elbow of the medial epicondyle and olecranon and made a curvilinear incision following the course of the ulnar nerve at the medial aspect of the elbow.? Sharp scalpel incision was made through skin and subcutaneous tissue.? Next I switched to Littler dissection scissors and spread in plane of the medial antebrachial cutaneous nerve branching which was protected throughout this part of the dissection.? Then I directly came down over the fascia and identified the 2 heads of the FCU fascia and split this Left in the middle and subsequently identified my ulnar nerve distally.? This was then completely released distally under direct visualization and loupe magnification.? Once the nerve was then identified I then subsequently tracked this proximally and released this through Cruz's ligament as well as complete decompression of the nerve proximally all the way past the intermuscular septum.? The nerve was completely released and decompressed both proximally and distally.? Ulnar nerve neurolysis performed and completed both proximally and distally with dissection scissors.? I then took the elbow through range of motion and there was no instability or subluxating of the ulnar nerve.? This completed?cubital tunnel release.? ?Next the wound bed was thoroughly irrigated.? Tourniquet was deflated.? Hemostasis was satisfactory at the?cubital tunnel release surgery site. I then inspected the carpal tunnel incision and this was found to have satisfactory hemostasis and all this was maintained through bipolar electrocautery.? At this point time I sequentially closed?cubital tunnel site with 3-0 Vicryl suture in a running horizontal mattress nylon stitch.? ? The carpal tunnel release surgery was then closed in standard interrupted mattress fashion.? Dressing was Xeroform 4 x 4's ABD Curlex soft roll and an Cristian wrap has a bulky soft dressing. Patient was then awakened from anesthesia and taken to PACU in stable condition. Disposition: Patient taken to PACU in stable condition recovering well.? Patient will receive appropriate discharge instructions as well as pain medication postoperatively.? We will follow-up with me in the office in 2 weeks.? Patient understands agrees with current plan.? All questions answered.? pt understands if any questions or concerns and contact the office for follow-up appointment..
--- NOTE | 2024-04-15 08:51 | P.BOP_ITS ---
Date of Procedure: [April 15, 2024] Surgeon: [Dr. Rick DO] Farm Loan Inspector(s): [Garth Cabrera PA-C] Procedure(s) performed: [Left carpal tunnel release and left cubital tunnel release] Findings of the procedure(s): [Left carpal tunnel syndrome and left cubital tunnel syndrome. No subluxation of ulnar nerve over elbow with range of motion. No ulnar nerve transposition needed. Procedure went well and as planned.] Estimated blood loss: [2 mL] Specimen(s) removed: [N/A] Post-operative diagnosis: [Left carpal tunnel syndrome left cubital tunnel syndrome]
--- NOTE | 2024-04-15 08:53 | PM.PACU ---
PACU note Narrative: Patient is a 78-year-old female just underwent a left carpal tunnel left cubital tunnel release. Patient transferred to PACU in stable condition. Pain is well controlled. Dressing on hand is dry and in place. Patient's fingers are warm and well-perfused. normal cap refill under 2 seconds. Unable to assess further motor or sensation due to residual block. Exam: awake Disposition: discharged
--- NOTE | 2024-04-15 09:35 | ANE.PACU2 ---
Inpatient post-anesthesia follow up: Airway intact: Yes Vital signs: Temperature 97.6 F Pulse Rate 60 Respiratory Rate 16 Blood Pressure 158/64 Pulse Oximetry 96 Oxygen Delivery Me thod Room Air Oxygen Flow Rate Fraction of Inspir ed Oxygen Hydration adequate: Yes Nausea and vomiting: No Pain level: 1 Mental status: Baseline
== END 2024-04-15 09:35 | disposition home or self-care (01) ==
PROVIDERS: Student in an Organized Health Care Education/Training Program; PCP Family Medicine; Visit Provider Student in an Organized Health Care Education/Training Program
PROC: (CPT 64721; principal; 2024-04-15 07:45)
PROC: (CPT 64718; 2024-04-15 07:45)
DX: G56.02 Carpal tunnel syndrome, left upper limb (principal); G56.22 Lesion of ulnar nerve, left upper limb; I10 Essential (primary) hypertension; Z79.899 Other long term (current) drug therapy; Z79.82 Long term (current) use of aspirin; Z88.2 Allergy status to sulfonamides; Z88.0 Allergy status to penicillin; Z88.8 Allergy status to other drugs, medicaments and biological substances; Z91.040 Latex allergy status; Z95.5 Presence of coronary angioplasty implant and graft; I25.10 Atherosclerotic heart disease of native coronary artery without angina pectoris; E78.5 Hyperlipidemia, unspecified
CPT/HCPCS: 64718; 64721; 36415; 80048; 93005; J0131; J1885; J2704; J7030

== ENCOUNTER → 2024-04-28 10:31 | Outpatient (BNVA) | payer MEDICARE, SELFPAY | PROVIDERS: PCP Family Medicine; Visit Provider Physician Assistant | DX: Z98.890 Other specified postprocedural states (principal) | CPT/HCPCS: 99024 ==

== ENCOUNTER → 2024-06-09 11:14 | Outpatient (BNVA) | payer MEDICARE, SELFPAY | PROVIDERS: PCP Family Medicine; Visit Provider Physician Assistant | DX: G56.03 Carpal tunnel syndrome, bilateral upper limbs (principal); Z98.890 Other specified postprocedural states; G56.23 Lesion of ulnar nerve, bilateral upper limbs | CPT/HCPCS: 99214 ==

== ENCOUNTER → 2024-06-16 14:50 | Outpatient (BNVA) | payer MEDICARE, SELFPAY | PROVIDERS: PCP Family Medicine; Visit Provider Internal Medicine | DX: I25.10 Atherosclerotic heart disease of native coronary artery without angina pectoris (principal); I10 Essential (primary) hypertension; Z87.891 Personal history of nicotine dependence; Z95.5 Presence of coronary angioplasty implant and graft; R07.89 Other chest pain | CPT/HCPCS: 99214 ==

== ENCOUNTER → 2024-07-21 11:52 | Outpatient (BNVA) | payer MEDICARE, MEDICAID, SELFPAY | PROVIDERS: PCP Family Medicine; Visit Provider Internal Medicine | DX: I10 Essential (primary) hypertension (principal); E03.8 Other specified hypothyroidism; E66.9 Obesity, unspecified | CPT/HCPCS: 99204 ==

== ENCOUNTER 2024-08-05 09:42 | Day surgery (SDC) | payer MEDICARE, MEDICAID, SELFPAY ==
[2024-08-05] VITALS (7 sets, daily range): BP systolic 158–209; BP diastolic 74–93; PULSE 60–80; RESP 16–18; TEMP 36.1–36.5; O2SAT 96–97; BMI 31.8
[2024-08-05] MEDS: sodium chloride 0.9% 1,000 ML 30 ML IV (10:39)
[2024-08-05] MEDS: ketorolac 30 mg/mL INJ IVP (10:40)
--- NOTE | 2024-08-05 10:53 | P.ANESASSM_ITS ---
Pre-Anesthetic Assessment Height/Weight: Height 5 ft Weight 163 lb Temp Pulse Resp BP Pulse Ox O2 Del Method 97.7 F 62 18 209/93 97 Room Air 08/05/24 10:30 08/05/24 10:30 08/05/24 10:30 08/05/24 10:30 08/05/24 10:30 08/05/24 10:30 Preop Diagnosis: Carpal/cubital tunnel syndrome Operation Date: 08/05/24 12:40 Proposed Procedures p RIGHT Carpal Tunnel Release(Right) - Gildardo Rick, DO s Cubital Tunnel Release(Right) - Gildardo Gray, DO s POSSIBLE Ulnar Nerve Transposition(Right) - Gildardo Rick, DO Was Beta Samson taken within 24 hours: N/A Was Clonidine taken within 24 hours: N/A Last intake: Intake Last Liquid Date 08/04/24 Last Liquid Time 23:00 Last Solid Date 08/04/24 Last Solid Time 19:30 Social No alcohol and No tobacco Exam alert, oriented x 3, clear to auscultation bilaterally and regular rate & rhythm Airway Submandibular: within normal limits Cervical ROM: within normal limits Mallampati: Class II Dentition: full Anesthetic Plan ASA status: 3 Anesthesia: Choice and Regional (specify below) Other: No prior issues with anesthesia. Patient had previous side performed without issues with PNB NPO since yesterday evening History of hypertension on losartan and hydrochlorothiazide. Preop BP 180/88 Prior CAD history Labs 12/09/2023 reviewed and acceptable for procedure EKG sinus bradycardia Negative stress test 10/2022 Prior echo in 2022 showing EF 55 to 60% with no wall motion abnormalities Plan for MAC anesthetic with preop nerve block Medications/Allergies Home Medications ?Medication ?Instructions ?Recorded ?Confirmed ?Last Taken ?Type hydrochlorothiazide 12.5 mg capsule 12.5 mg PO DAILY 0 10/26/22 08/05/24 08/05/24 07:00 History nitroglycerin 0.4 mg sublingual 0.4 mg sublingual PRN PRN Chest 10/26/22 08/04/24 10/26/22 History tablet Pain aspirin 81 mg tablet,delayed 81 mg PO DAILY #30 tabs 0 10/29/22 08/04/24 07/31/24 Rx release ezetimibe 10 mg tablet 10 mg PO DAILY 30 days #30 t abs 10/29/22 08/04/24 08/04/24 Rx isosorbide mononitrate 30 mg 60 mg (2 x 30 mg) PO ELVIN Y 30 days 10/29/22 08/04/24 08/04/24 Rx tablet,extended release 24 hr #30 tabs losartan 50 mg tablet 50 mg PO DAILY #90 tabs 06/0208/04/24 08/03/24 Rx niacin 500 mg capsule,extended 500 mg PO BID 12/09/23 08/04/24 08/04/24 History release tramadol 50 mg tablet 50 mg PO Q6H PRN pain #20 ta bs 04/15/24 08/04/24 Unknown Rx clopidogrel 75 mg tablet 75 mg PO DAILY 08/04/2406/2507/31/24 History Allergies Allergy/AdvReac Type Severity Reaction Status Date / Time latex Allergy Severe ADR-Itching Verified 08/04/24 13:07 ciprofloxacin (From Cipro) Allergy ALGY-Rash Verified 08/04/24 13:07 Penicillins Allergy ALGY-Rash Verified 08/04/24 13:07 Sulfa (Sulfonamide Allergy ALGY-Rash Verified 08/04/24 13:07 Antibiotics) Current Medications Generic Name Dose Route Start Last Admin Trade Name Freq PRN Reason Stop Dose Admin Sodium Chloride 1,000 mls @ 30 mls/hr 08/05/24 10:15 08/05/24 10:39 Sodium Chloride 0.9% IV 08/06/24 10:14 30 mls/hr .Q24H MAHSA Administration PFSH Anesthesia Medical History Dyslipidemia Benign hypertension Atherosclerotic 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
--- NOTE | 2024-08-05 11:32 | ANES.PROC ---
Anesthesia Procedures Procedure/Date: 08/05/24 Nerve Block ^: Nerve Block 1: Main Anesthesia: other (100mcg fentanyl) Time Out Performed: Yes Consent: requested by attending/covering physician Nerve block location: supraclavicular Anesthesia monitors applied: pulse oximetry, EKG, BP cuff and oxygen Nerve block position: supine Anesthetic Used: ropivicaine 0.5% Amount of anesthesia used (mL): 30 Ultrasound used to: recognize landmarks Nerve Stimulator Used?: Yes Interscalene/Femoral BLK: other needle (pjunk 4inch) Injection: neg aspiration of heme Patient Tolerated Procedure: well Complications: none Additional Comments: Decadron 4 mg added to block
--- NOTE | 2024-08-05 12:07 | W.PM.OPSFHP ---
Same Day Surgery H&P Indication for Procedure/HPI DATE OF PROCEDURE: August 05, 2024 CHIEF COMPLAINT/INDICATIONFOR SURGICAL PROCEDURE: Right carpal tunnel syndrome, right cubital tunnel syndrome PREOP DIAGNOSIS: Right carpal/cubital tunnel syndrome PLANNED PROCEDURE: Operation Date: 08/05/24 12:40 Proposed Procedures p RIGHT Carpal Tunnel Release(Right) - Gildardo Cabrera, DO s Cubital Tunnel Release(Right) - Gildardo Cabrera, DO s POSSIBLE Ulnar Nerve Transposition(Right) - Gildardo Cabrera, DO Medications/Allergies* Home Medications ?Medication ?Instructions ?Recorded ?Confirmed ?Type hydrochlorothiazide 12.5 mg capsule 12.5 mg PO DAILY 10/26/22 08/05/24 History nitroglycerin 0.4 mg sublingual 0.4 mg sublingual PRN PRN Chest 10/26/22 08/04/24 History tablet Pain niacin 500 mg capsule,extended 500 mg PO BID 12/09/23 08/04/24 History release clopidogrel 75 mg tablet 75 mg PO DAILY 08/04/24 08/04/24 History Allergies/Adverse Reactions Allergy/AdvReac Type Severity Reaction Status Date / Time latex Allergy Severe ADR-Itching Verified 08/04/24 13:07 ciprofloxacin (From Cipro) Allergy ALGY-Rash Verified 08/04/24 13:07 Penicillins Allergy ALGY-Rash Verified 08/04/24 13:07 Sulfa (Sulfonamide Allergy ALGY-Rash Verified 08/04/24 13:07 Antibiotics) Current Medications: Generic Name Dose Route Start Last Admin Trade Name Freq PRN Reason Stop Dose Admin Sodium Chloride 1,000 mls @ 30 mls/hr 08/05/24 10:15 08/05/24 10:39 Sodium Chloride 0.9% IV 08/06/24 10:14 30 mls/hr .Q24H MAHSA Administration Pertinent History/Comorbid Conditions* Medical History (Updated 07/28/24 @ 16:32 by Simin Milligan MD) Dyslipidemia Benign hypertension Atherosclerotic heart disease [place] coronary artery w/angina pectoris CAD (coronary artery disease) Hypertension Surgical History (Updated 06/09/24 @ 11:50 by LEIGHA Parker) S/P coronary artery stent placement Once in January 2022 for [place] and RCA in August 2022 for unstable angina Family History (Updated 10/26/22 @ 20:06 by Greg Miles MD) CAD (coronary artery disease) Social History Smoking and tobacco/nicotine status: unknown if used tobacco/nicotine Alcohol intake: never Caregiver/support person: Yes Lives independently: Yes Household members: spouse Housing: House Marital status: Pertinent Exam Findings alert, oriented x 3, operative site marked and procedure specific exam findings Please refer to detailed orthopedic examination on listed below: Right Hand exam-positive Tinel's and positive Phalen's test. thenar atrophy and thenar muscle weakness noted. Full range of motion in fingers and wrist and fingers are warm and well-perfused with normal cap refill under 2 seconds. Radial pulse 2+, intrinsic muscle weakness noted. Right Elbow exam-Positive Tinel's test Left arm?surgical incision sites are completely healed scar present. Patient has full range of motion of elbow and wrist and no signs of any infection noted. Resource Paraprofessional strength 5 out of 5 normal cap refill under 2 seconds. Radial pulse 2+. Recommendations Risks and benefits of procedure reviewed and Patient/family agree to proceed Surgery/Procedure today Other Plans: Plan to proceed to the OR today for right carpal tunnel release, right cubital tunnel release. Patient is done well with the left side surgery and ready to proceed for the right side today. Understands the ins and outs procedure risk benefits complication alternatives with surgery and through shared decision-making elects proceed with surgical invention. All questions answered at this time. Coding Level of Care Code Acute Code for Jaden Guevara
[2024-08-05] MEDS: clindamycin 600 MG/50 ML PREMIX 100 MG IV (12:32)
--- NOTE | 2024-08-05 13:14 | W.PM.BPON ---
Date of Procedure: 08/05/2024 Surgeon: Gildardo Cabrera DO [employer] Developer(s): None Procedure(s) performed: Right carpal tunnel release Right cubital tunnel release (ulnar nerve decompression at the elbow) Findings of the procedure(s): Patient underwent procedure as planned without issues or complications Estimated blood loss: 5 mL Specimen(s) removed: None Post-operative diagnosis: Right carpal tunnel syndrome, right cubital tunnel syndrome
--- NOTE | 2024-08-05 13:15 | PM.OP ---
Operative Report Date of procedure: August 05, 2024 Surgeon: Gildardo Cabrera DO Procedure: Preoperative diagnosis: Right carpal tunnel syndrome Right cubital tunnel syndrome postop Diagnosis: Same Procedure done: Right carpal tunnel release Right?cubital tunnel tunnel release (ulnar nerve decompression at elbow) Surgeon: Gildardo Cabrera DO Estimated blood loss: 5 mL Tourniquet? 13 minutes IV fluids: 700 mL Complications: None Findings: See operative report narrative Condition: stable Disposition: same day Brief History: Patient's been seen and worked up in the outpatient setting and findings consistent with preoperative diagnosis.? Patient has right carpal tunnel syndrome as well as right?cubital tunnel syndrome which has been worked up in the outpatient setting has physical exam findings consistent with this as well as confirmatory nerve conduction nerve conduction study consistent with diagnosis.? Patient's failed conservative treatment.? As result through shared decision making agreed to proceed with? right carpal tunnel and right?cubital tunnel release with possible ulnar nerve transposition. We talked about treatment options as far as nonoperative and operative intervention.? Understands risk benefits complication alternatives surgical nonsurgical treatment options.? Understanding risks patien agrees to proceed with surgical intervention. ? Consent obtained in preoperative holding area. Procedure: Patient seen evaluate in the preoperative holding area.? Consent was reviewed and signed with patient.? Correct extremity marked.? Patient seen evaluated by anesthesia department once cleared for surgery was then taken back to the operative suite placed in supine position all bony prominences well-padded patient properly secured to bed.? right upper extremity placed onto armboard.? Nonsterile tourniquet applied right upper arm.? Patient then underwent anesthesia per the anesthesia department.? Patient's right upper extremity was then prepped and draped in standard orthopedic fashion.? Final timeout performed.? Patient received appropriate preoperative antibiotics. Esmarch was used exsanguinate the right upper extremity.? Tourniquet was insufflated to 250 mmHg. I started with the carpal tunnel release first.? I made a standard open carpal tunnel release starting with the distal most extent in the palm at the Fontana's cardinal line and the incision line was made in line with the fourth ray and ended just distal to the wrist crease.? Sharp scalpel incision was made through skin and subcutaneous tissue I then utilizing self retainer then began to dissect with dissection scissors split longitudinally the palmar fascia.? Next I then utilizing my business development assistant Clau retractors subsequently utilizing scalpel feathered through the palmaris brevis as well as through the transverse carpal ligament distally.? Once I encountered the floor of the transverse carpal ligament and entered into the carpal tunnel I then switched to dissection scissors.? Carefully released the distal extent of the transverse carpal ligament to the palmar fat.? Care was to protect the recurrent branch and not injured this during this part of the case.? Next I then placed a Keaton underneath the transverse carpal ligament proximally to protect the nerve in the carpal tunnel contents.? And then I subsequently under loupe magnification utilize my dissection scissors to release the transverse carpal ligament into the antebrachial fascia under direct visualization with care to keep my scissors with a curved ulnarly away from the palmar cutaneous branch.? The transverse carpal was then completely decompressed proximally and a Keaton was then placed both distally and proximally throughout the carpal tunnel and had complete decompression of the nerve.? The nerve did appear to have hourglass shape as it went through the carpal tunnel.? With significant irritation noted around the nerve.? No masses were noted within the contents of the carpal tunnel.? This completed the carpal tunnel release and then I subsequently irrigated the wound bed and placed a wet Ray-Rufus into the incision for later closure. Next marked out the landmarks of the right elbow of the medial epicondyle and olecranon and made a curvilinear incision following the course of the ulnar nerve at the medial aspect of the elbow.? Sharp scalpel incision was made through skin and subcutaneous tissue.? Next I switched to Littler dissection scissors and spread in plane of the medial antebrachial cutaneous nerve branching which was protected throughout this part of the dissection.? Then I directly came down over the fascia and identified the 2 heads of the FCU fascia and split this right in the middle and subsequently identified my ulnar nerve distally.? This was then completely released distally under direct visualization and loupe magnification.? Once the nerve was then identified I then subsequently tracked this proximally and released this through Cruz's ligament as well as complete decompression of the nerve proximally all the way past the intermuscular septum.? The nerve was completely released and decompressed both proximally and distally.? Ulnar nerve neurolysis performed and completed both proximally and distally with dissection scissors.? I then took the elbow through range of motion and there was no instability or subluxating of the ulnar nerve.? This completed?cubital tunnel release.? ?Next the wound bed was thoroughly irrigated.? Tourniquet was deflated.? Hemostasis was satisfactory at the?cubital tunnel release surgery site. I then inspected the carpal tunnel incision and this was found to have satisfactory hemostasis and all this was maintained through bipolar electrocautery.? At this point time I sequentially closed?cubital tunnel site with 3-0 Vicryl suture in a running horizontal mattress nylon stitch.? ? The carpal tunnel release surgery was then closed in standard interrupted mattress fashion.? Dressing was Xeroform 4 x 4's ABD Curlex soft roll and an Cristian wrap has a bulky soft dressing. Patient was then awakened from anesthesia and taken to PACU in stable condition. Disposition: Patient taken to PACU in stable condition recovering well.? Patient will receive appropriate discharge instructions as well as pain medication postoperatively.? We will follow-up with me in the office in 2 weeks.? Patient understands agrees with current plan.? All questions answered.? He understands if any questions or concerns and contact the office for follow-up appointment.
--- NOTE | 2024-08-05 13:38 | PM.PACU ---
PACU note Narrative: Patient is an 79-year-old female that just underwent a right carpal tunnel release and right cubital tunnel release. Patient transferred to PACU in stable condition. Pain is well controlled. Dressing on hand is dry and in place. Patient's fingers are warm and well-perfused. Patient can wiggle fingers. normal cap refill under 2 seconds. Sensation of fingers intact Exam: awake Disposition: discharged
--- NOTE | 2024-08-05 14:30 | ANE.PACU2 ---
Inpatient post-anesthesia follow up: Airway intact: Yes Vital signs: Temperature 97 F Pulse Rate 60 Respiratory Rate 16 Blood Pressure 187/90 Pulse Oximetry 96 Oxygen Delivery Me thod Room Air Oxygen Flow Rate 2 Fraction of Inspir ed Oxygen Hydration adequate: Yes Nausea and vomiting: No Pain level: 1 Mental status: Baseline
== END 2024-08-05 14:30 | disposition home or self-care (01) ==
PROVIDERS: PCP Family Medicine; Visit Provider Student in an Organized Health Care Education/Training Program
PROC: (CPT 64721; principal; 2024-08-05 12:40)
PROC: (CPT 64718; 2024-08-05 12:40)
DX: G56.01 Carpal tunnel syndrome, right upper limb (principal); G56.21 Lesion of ulnar nerve, right upper limb; I10 Essential (primary) hypertension; Z86.79 Personal history of other diseases of the circulatory system; Z79.82 Long term (current) use of aspirin; E78.5 Hyperlipidemia, unspecified; I25.119 Atherosclerotic heart disease of native coronary artery with unspecified angina pectoris
CPT/HCPCS: 64718; 64721; J1885; J2704; J3010; J3490; J7030

== ENCOUNTER → 2024-08-19 10:16 | Outpatient (BNVA) | payer MEDICARE, MEDICAID, SELFPAY | PROVIDERS: PCP Family Medicine; Visit Provider Physician Assistant | DX: Z98.890 Other specified postprocedural states (principal) | CPT/HCPCS: 99024 ==

== ENCOUNTER → 2024-09-29 13:20 | Outpatient (BNVA) | payer MEDICARE, SELFPAY | PROVIDERS: PCP Family Medicine; Visit Provider Physician Assistant | DX: Z98.890 Other specified postprocedural states (principal) | CPT/HCPCS: 99213 ==

== ENCOUNTER → 2024-10-27 11:49 | Outpatient (BNVA) | payer MEDICARE, SELFPAY | PROVIDERS: PCP Family Medicine; Visit Provider Internal Medicine | DX: I10 Essential (primary) hypertension (principal); I25.10 Atherosclerotic heart disease of native coronary artery without angina pectoris; E03.8 Other specified hypothyroidism; E66.9 Obesity, unspecified | CPT/HCPCS: 99214 ==